=== PATIENT | female | born 1980 | race Caucasian/White ===

== ENCOUNTER → 2016-12-07 | Outpatient (CLI) | payer BC ==
[2016-12-07 08:27] LABS: CH 29.9; CHCM 34.8; HCT 39.1 % (34.0-46.0); HDW 2.59; HGB 13.6 gm/dL (11.4-16.0); MCHC 34.8 g/dL (31.0-37.0); MCV 86.3 fL (80.0-100.0); Mean Platelet Volume 6.7; RBC 4.53 m/uL (3.80-5.40); RDW 12.6 % (11.5-15.5); WBC 4.9 k/uL (3.8-10.6)
[2016-12-07 08:42] LABS: ALT 21 U/L (9-52); AST 21 U/L (14-36); Alkaline Phosphatase 63 U/L (38-126); Anion Gap 9 mmol/L; Blood Urea Nitrogen 16 mg/dL (7-17); Calcium 9.3 mg/dL (8.4-10.2); Carbon Dioxide 27 mmol/L (22-30); Chloride 105 mmol/L (98-107); Cholesterol 206 mg/dL (<200); Glucose 95 mg/dL (74-99); HDL Cholesterol 64 mg/dL (40-60); Non-African American GFR(MDRD) >60 (>60 ml/min/1.73 sqM); Potassium 4.4 mmol/L (3.5-5.1); Sodium 141 mmol/L (137-145); Total Bilirubin 0.9 mg/dL (0.2-1.3); Total Protein 7.1 g/dL (6.3-8.2); Triglycerides 65 mg/dL (<150)
== END | disposition home or self-care (01) ==
LOC: LABWHC1 07:58
PROVIDERS: ATTEND Family Medicine
DX: Z00.00 Encounter for general adult medical examination without abnormal findings (principal)
CPT/HCPCS: 36415; 80053; 80061; 85027

== ENCOUNTER → 2017-11-06 | Outpatient (CLI) | payer BC ==
--- NOTE | 2017-11-07 07:55 | USB ---
Reason for exam: clinical finding. History: Family history of breast cancer in 3 paternal aunts at age 40. Benign US breast aspiration single LT of the left breast, December 12, 2014. Benign US biopsy breast VAD LT of the left breast, December 12, 2014. Indicated problem(s): lump or thickening in the left breast. Physical Findings: Nurse Summary: left breast nodules 12 o'clock, 1 o'clock, 2 o'clock, all soft, movable 0.5 x 1cm tender (nurse ts). US Breast LT Left complete breast ultrasound includes all four quadrants, the retroareolar region and axilla. Finding demonstrates several cystic lesions measuring 0.7 x 0.5 x 0.3cm at 12 o'clock, 1.9 x 0.8 x 1.7cm at 1 o'clock-may be two adjacent cysts, short term follow up recommended, 0.7 x 0.5 x 0.7cm at 2 o'clock and 1.5 x 1.1 x 1.4cm at 2 o'clock. These results were verbally communicated with the patient and result sheet given to the patient on 11/06/17. ASSESSMENT: Probably benign, BI-RAD 3 RECOMMENDATION: Ultrasound of the left breast in 6 months. Manage patient on a clinical basis.
== END | disposition home or self-care (01) ==
LOC: RADUSWWP 15:39
PROVIDERS: ATTEND Obstetrics & Gynecology
DX: N64.4 Mastodynia (principal); N63.20 Unspecified lump in the left breast, unspecified quadrant

== ENCOUNTER → 2018-04-14 | Outpatient (CLI) | payer BC ==
--- NOTE | 2018-04-14 13:27 | ECHOF ---
Referral Reason:R53.83 Fatigue, Z82.49 Family MEASUREMENTS -------- HEIGHT: 165.1 cm WEIGHT: 58.1 kg BP: IVSd: 0.7 cm (0.6 - 1.1) LVIDd: 4.0 cm (3.9 - 5.3) LVPWd: 0.9 cm (0.6 - 1.1) IVSs: 1.0 cm LVIDs: 2.6 cm LVPWs: 1.1 cm RVIDd: 1.9 cm (< 3.3) LAESV Index (A-L): 27.98 ml/m Ao Diam: 2.9 cm (2.0 - 3.7) LA Diam: 1.1 cm (2.7 - 3.8) AV Cusp: 1.6 cm (1.5 - 2.6) MV E Abilio: 0.82 m/s MV DecT: 454 ms MV A Abilio: 0.98 m/s MV E/A Ratio: 0.84 RAP: 5.00 mmHg RVSP: 27.35 mmHg FINDINGS -------- Resting tachycardia (HR>100bpm). This was a technically good study. The left ventricular size is normal. Left ventricular wall thickness is normal. Overall left vent ricular systolic function is normal with, an EF between 55 - 60 %. The right ventricle is normal in size and function. Normal LA size by volume 22+/-6 ml/m2. The right atrium is normal in size. The aortic valve is trileaflet, and appears structurally normal. No aortic stenosis or regurgitation. The mitral valve is normal. There is trace mitral regurgitation. Trace tricuspid regurgitation present. Right ventricular systolic pressure is normal at < 35 mmHg. There is no evidence of pulmonary hypertension. Trace/mild (physiologic) pulmonic regurgitation. The aortic root size is normal. Normal inferior vena cava with normal inspiratory collapse consistent with estimated right atrial pre ssure of 5 mmHg. There is no pericardial effusion. CONCLUSIONS -------- 1. Resting tachycardia (HR>100bpm). 2. This was a technically good study. 3. The left ventricular size is normal. 4. Left ventricular wall thickness is normal. 5. Overall left ventricular systolic function is normal with, an EF between 55 - 60 %. 6. Normal LA size by volume 22+/-6 ml/m2. 7. The aortic valve is trileaflet, and appears structurally normal. No aortic stenosis or regurgitati on. 8. There is trace mitral regurgitation. 9. Trace tricuspid regurgitation present. 10. Right ventricular systolic pressure is normal at < 35 mmHg. 11. There is no evidence of pulmonary hypertension. 12. Trace/mild (physiologic) pulmonic regurgitation. 13. The aortic root size is normal. 14. There is no pericardial effusion. COMMERCIAL LINES ACCOUNT EXECUTIVE: Silverio Shah RDCS
--- NOTE | 2018-04-15 11:15 | P.STRESS ---
- Stress Test Note Stress Test Results/Findings: Exam Performed: stress test Exam Date: 04/14/18 Reason for Exam: FATIGUE Height: 5 ft 5 in Weight: 58.06 kg Protocol: MARGRET Stage: 4 Duration of Exercise: 9:30 Resting Heart Rate: 90 Resting Blood Pressure: 129/72 Maximum Achieved Heart Rate: 157 Maximum Achieved Blood Pressure: 164/76 85% PMHR: 155 100% PMHR: 182 METS: 11.1 Technologist Comment: Stress Test Results/Findings: Baseline heart rate 90 beats a minute, Baseline blood pressure 122/72 mmHg Baseline twelve-lead ECG shows normal sinus rhythm and on chronic intervals Patient exercised on a Margret protocol for 9 minutes 30 seconds achieving a peak heart of 157 beats a minute normal blood pressure response to exercise There is no ECG evidence for ischemia There were no arrhythmias noted Impression Good exercise capacity normal blood pressure response to exercise no ECG evidence for ischemia
== END ==
LOC: RADNMMAIN 08:33
PROVIDERS: ATTEND Family Medicine
DX: I37.1 Nonrheumatic pulmonary valve insufficiency (principal); Z82.49 Family history of ischemic heart disease and other diseases of the circulatory system
CPT/HCPCS: 93017; 93306

== ENCOUNTER 2018-10-04 16:09 | Observation (INO) | payer BC, OTHER ==
[2018-10-04] MEDS ORDERED: MORPHINE SULFATE 2 MG/ML SYRINGE IVP STA (16:34)
[2018-10-04] MEDS ORDERED: SODIUM CHLORIDE 0.9% 1,000 ML IV STA (16:34)
[2018-10-04] MEDS ORDERED: HEPARIN SODIUM,PORCINE 5,000 UNIT/ML 1 ML VIAL IV PRN (16:35)
[2018-10-04] MEDS ORDERED: HEPARIN SODIUM,PORCINE 10,000 UNIT/ML 1 ML VIAL IV ONE (16:35)
--- NOTE | 2018-10-04 16:40 | ED ---
General Adult HPI - General Chief complaint: Chest Pain Stated complaint: Chest Pain Time Seen by Provider: 10/04/18 16:24 Source: patient Mode of arrival: wheelchair Limitations: no limitations - History of Present Illness Initial comments: Dictation was produced using On[employer] dictation software. please excuse any grammatical, word or spelling errors. Chief Complaint: 38 year old female with past medical history of factor V deficiency, endometriosis and SVT presents with chief complaint of chest pain since yesterday. History of Present Illness: 38-year-old female with multiple comorbidities. She states that since yesterday she's been having right anterior chest pain with radiation to the back since yesterday. She denies also been complaining of some numbness to her left hand. Patient denies any weakness to that extremity. Patient states that her symptoms have been constant since yesterday. She states this pain is unlike anything she is admitted experienced before. Patient has multiple ablation procedures performed in the past. Patient has a history of factor V deficiency. Denies any history of blood clots. Denies any lower extremity symptoms. Patient denies any shortness of breath. Patient is on a beta chrystal for SVT control. Her silver holloware assembler is Dr. Nagy. Patient does complain of nausea however no vomiting. The ROS documented in this emergency department record has been reviewed and confirmed by me. Those systems with pertinent positive or negative responses have been documented in the HPI. All other systems are other negative and/or noncontributory. PHYSICAL EXAM: General Impression: Alert and oriented x3, acute distress, nauseated, in pain HEENT: Normocephalic atraumatic, extra-ocular movements intact, pupils equal and reactive to light bilaterally, mucous membranes moist. Cardiovascular: Heart regular rate and rhythm, S1&S2 audible, no murmurs, rubs or gallops Chest: Lungs clear to auscultation bilaterally, no rhonchi, no wheeze, no rales Abdomen: Bowel sounds present, abdomen soft, non-tender, non-distended, no organomegaly Musculoskeletal: Pulses present and equal in all extremities, no peripheral edema, no pulse deficit in the extremities no asymmetrical swelling of the lower extremities Motor: no focal deficits noted Neurological: CN II-XII grossly intact, no focal motor or sensory deficits noted Skin: Intact with no visualized rashes Psych: Normal affect and mood ED course: 38-year-old female presents with chief complaint of chest pain. Vital signs upon arrival shows heart rate of 129, worse vital signs within acceptable limits. EKG was performed showing coronary disease pattern. The patient be Q-wave in lead 3 this not seen on EKG performed in February 2014.Laboratory evaluation obtained. CBC, coag panel, metabolic panel, cardiac enzymes, lipase is negative. Stat portable chest x-ray shows no acute processes. Patient's symptoms are concerning for aortic dissection versus pulmonary embolus. CT angios unremarkable for any aortic abnormalities or PE. Patient given 2 mg of morphine and aspirin. She did report improvement of symp toms upon reevaluation. Patient however still does report some symptoms and still has sporadic sinus arrhythmias. Given patient's medical history and clinical presentation today we will plan to have patient admitted to observation with serial troponins and cardiology consultation. EKG interpretation: Ventricular rate orally, sinus tachycardia,. Interval 146, Q 72, QTC 410. No HI prolongation, no QTC prolongation, no ST or T-wave changes noted. - Related Data Home Medications Medication Instructions Recorded Confirmed Naltrexone HCl/Bupropion HCl 1 tab PO BID 10/04/18 10/04/18 [Contrave ER 8-90 mg Tablet] Allergies Allergy/AdvReac Type Severity Reaction Status Date / Time adhesive tape Allergy BLISTERS" Verified 10/04/18 17:24 codeine AdvReac Chest Pain Verified 10/04/18 17:24 hydromorphone HCl AdvReac Chest Pain Verified 10/04/18 17:24 [From Dilaudid] meperidine HCl [From Demerol] AdvReac Chest Pain Verified 10/04/18 17:24 nitroglycerin AdvReac Unknown Verified 10/04/18 17:24 [From Nitrostat] Review of Systems ROS Statement: Those systems with pertinent positive or pertinent negative responses have been documented in the HPI. ROS Other: All systems not noted in ROS Statement are negative. Past Medical History Past Medical History: Supraventricular Tachycardia (SVT) Additional Past Medical History / Comment(s): Factor V deficiency, endometriosis History of Any Multi-Drug Resistant Organisms: None Reported Past Surgical History: Cardiac Ablation, Cholecystectomy, Tubal Ligation Additional Past Surgical History / Comment(s): left ovary removed, SVT Past Anesthesia/Blood Transfusion Reactions: No Reported Reaction Past Psychological History: No Psychological Hx Reported Smoking Status: Never smoker Past Alcohol Use History: None Reported Past Drug Use History: None Reported - Past Family History Father Family Medical History: Coronary Artery Disease (CAD), Diabetes Mellitus Mother Family Medical History: Cancer, Deep Vein Thrombosis (DVT), Pulmonary Embolus General Exam Limitations: no limitations Course Vital Signs 10/04/18 10/04/18 10/04/18 16:14 16:30 17:56 Temperature 99.3 F Pulse Rate 129 H 99 Pulse Rate [ 115 H Branch Retail Executive ] Respiratory 20 20 Rate Blood Pressure 117/81 123/64 O2 Sat by Pulse 98 100 Oximetry Medical Decision Making - Lab Data Result diagrams: 10/04/18 16:45 10/04/18 16:45 Lab Results 10/04/18 10/04/18 10/04/18 Range/Units 16:45 16:45 16:45 WBC 9.0 (3.8-10.6) k/uL RBC 4.94 (3.80-5.40) m/uL Hgb 14.3 (11.4-16.0) gm/dL Hct 41.7 (34.0-46.0) % MCV 84.5 (80.0-100.0) fL MCH 29.0 (25.0-35.0) pg MCHC 34.3 (31.0-37.0) g/dL RDW 14.2 (11.5-15.5) % Plt Count 252 (150-450) k/uL Neutrophils % 89 % Lymphocytes % 6 % Monocytes % 2 % Eosinophils % 3 % Basophils % 0 % Neutrophils # 8.0 H (1.3-7.7) k/uL Lymphocytes # 0.5 L (1.0-4.8) k/uL Monocytes # 0.2 (0-1.0) k/uL Eosinophils # 0.2 (0-0.7) k/uL Basophils # 0.0 (0-0.2) k/uL PT 11.1 (9.0-12.0) sec INR 1.1 (<1.2) APTT 22.4 (22.0-30.0) sec Sodium 139 (137-145) mmol/L Potassium 3.9 (3.5-5.1) mmol/L Chloride 104 (98-107) mmol/L Carbon Dioxide 26 (22-30) mmol/L Anion Gap 9 mmol/L BUN 15 (7-17) mg/dL Creatinine 0.62 (0.52-1.04) mg/dL Est GFR (CKD-EPI)AfAm >90 (>60 ml/min/1.73 sqM) Est GFR (CKD-EPI)NonAf >90 (>60 ml/min/1.73 sqM) Glucose 105 H (74-99) mg/dL Calcium 9.3 (8.4-10.2) mg/dL Magnesium 1.8 (1.6-2.3) mg/dL Total Bilirubin 0.7 (0.2-1.3) mg/dL AST 22 (14-36) U/L ALT 22 (9-52) U/L Alkaline Phosphatase 66 (38-126) U/L Troponin I (0.000-0.034) ng/mL Total Protein 7.0 (6.3-8.2) g/dL Albumin 4.2 (3.5-5.0) g/dL Lipase 94 (23-300) U/L 10/04/18 Range/Units 16:45 WBC (3.8-10.6) k/uL RBC (3.80-5.40) m/uL Hgb (11.4-16.0) gm/dL Hct (34.0-46.0) % MCV (80.0-100.0) fL MCH (25.0-35.0) pg MCHC (31.0-37.0) g/dL RDW (11.5-15.5) % Plt Count (150-450) k/uL Neutrophils % % Lymphocytes % % Monocytes % % Eosinophils % % Basophils % % Neutrophils # (1.3-7.7) k/uL Lymphocytes # (1.0-4.8) k/uL Monocytes # (0-1.0) k/uL Eosinophils # (0-0.7) k/uL Basophils # (0-0.2) k/uL PT (9.0-12.0) sec INR (<1.2) APTT (22.0-30.0) sec Sodium (137-145) mmol/L Potassium (3.5-5.1) mmol/L Chloride (98-107) mmol/L Carbon Dioxide (22-30) mmol/L Anion Gap mmol/L BUN (7-17) mg/dL Creatinine (0.52-1.04) mg/dL Est GFR (CKD-EPI)AfAm (>60 ml/min/1.73 sqM) Est GFR (CKD-EPI)NonAf (>60 ml/min/1.73 sqM) Glucose (74-99) mg/dL Calcium (8.4-10.2) mg/dL Magnesium (1.6-2.3) mg/dL Total Bilirubin (0.2-1.3) mg/dL AST (14-36) U/L ALT (9-52) U/L Alkaline Phosphatase (38-126) U/L Troponin I <0.012 (0.000-0.034) ng/mL Total Protein (6.3-8.2) g/dL Albumin (3.5-5.0) g/dL Lipase (23-300) U/L Disposition Clinical Impression: Chest pain Disposition: ADMITTED IP TO THIS [facility] Condition: Fair Referrals: Domenico Rogers DO [Primary Care Provider] - 1-2 days Decision Time: 19:30
[2018-10-04] MEDS ORDERED: HEPARIN SOD,PORK IN 0.45% NACL 25,000 UNIT in 0.45% NACL 1 250ML.BAG IV SCH (16:45)
[2018-10-04 17:04] LABS: Basophils % (A) 0 %; Eosinophils # (A) 0.2 k/uL (0-0.7); Eosinophils % (A) 3 %; HCT 41.7 % (34.0-46.0); HGB 14.3 gm/dL (11.4-16.0); Lymphocytes # (A) 0.5 k/uL (1.0-4.8); Lymphocytes % (A) 6 %; MCHC 34.3 g/dL (31.0-37.0); MCV 84.5 fL (80.0-100.0); Mean Platelet Volume 7.7; Monocytes # (A) 0.2 k/uL (0-1.0); Monocytes % (A) 2 %; Neutrophils % (A) 89 %; Platelet Count 252 k/uL (150-450); RBC 4.94 m/uL (3.80-5.40); RDW 14.2 % (11.5-15.5)
[2018-10-04 17:14] LABS: ALT 22 U/L (9-52); AST 22 U/L (14-36); Albumin 4.2 g/dL (3.5-5.0); Alkaline Phosphatase 66 U/L (38-126); Anion Gap 9 mmol/L; Blood Urea Nitrogen 15 mg/dL (7-17); Calcium 9.3 mg/dL (8.4-10.2); Carbon Dioxide 26 mmol/L (22-30); Chloride 104 mmol/L (98-107); Glucose 105 mg/dL (74-99); Lipase 94 U/L (23-300); Magnesium 1.8 mg/dL (1.6-2.3); Potassium 3.9 mmol/L (3.5-5.1); Sodium 139 mmol/L (137-145); Total Bilirubin 0.7 mg/dL (0.2-1.3)
[2018-10-04 17:21] LABS: INR 1.1 (<1.2); Partial Thromboplastin Time 22.4 sec (22.0-30.0); Prothrombin Time 11.1 sec (9.0-12.0)
--- NOTE | 2018-10-04 17:27 | XR ---
EXAMINATION TYPE: XR chest 1V portable DATE OF EXAM: 10/04/2018 COMPARISON: Prior chest x-ray 03/17/2014 HISTORY: Chest pain TECHNIQUE: Single frontal view of the chest is obtained. FINDINGS: There are overlying cardiac leads. There is no focal air space opacity, pleural effusion, o r pneumothorax seen. The cardiac silhouette size is within normal limits. The osseous structures a re intact. IMPRESSION: No acute process.
--- NOTE | 2018-10-04 18:00 | CT ---
EXAMINATION TYPE: CT angio chest DATE OF EXAM: 10/04/2018 COMPARISON: CT chest 09/14/2015 HISTORY: SOB, pain in back CT DLP: 197.8 mGycm Automated exposure control for dose reduction was used. CONTRAST: CTA scan of the thorax is performed with IV Contrast, patient injected with 100 mL of Isovue 300, pul monary embolism protocol. MIP images are created and reviewed. 3D reconstructed images are created on an independent workstation and reviewed. FINDINGS: LUNGS: The lungs are grossly clear, there is no concerning parenchymal mass or nodule identified. T here is no pleural effusion or pneumothorax seen. The tracheobronchial tree is patent. AORTA: No additional significant abnormality is seen. MEDIASTINUM: There is satisfactory enhancement of the pulmonary artery and its branches, there is no CT evidence for pulmonary embolism. There are no greater than 1 cm hilar or mediastinal lymph nodes. No pericardial effusion is seen. OTHER: Patient is post cholecystectomy. IMPRESSION: NO EVIDENT PULMONARY EMBOLISM.
[2018-10-04] MEDS ORDERED: ASPIRIN 81 MG PO STA (19:26)
[2018-10-04 20:01] VITALS: RESP 16
[2018-10-04 20:40] LABS: Appearance,Urine Clear (Clear); Bilirubin,Urine Negative (Negative); Blood,Urine Moderate (Negative); Color,Urine Yellow; Glucose,Urine (UA) Negative (Negative); Ketones,Urine Negative (Negative); Leukocyte Esterase,Urine Negative (Negative); Mucus,Urine Rare /hpf; Nitrite,Urine Negative (Negative); Protein,Urine Trace (Negative); RBC,Urine 15 /hpf (0-5); Squamous Epithelial Cell,Urine <1 /hpf (0-4); Urobilinogen,Urine <2.0 mg/dL (<2.0)
[2018-10-04 20:45] LABS: Specific Gravity,Urine >1.050 (1.001-1.035)
[2018-10-04] MEDS: MORPHINE SULFATE 2 MG/ML SYRINGE IVP PRN (20:56)
[2018-10-05] MEDS: MORPHINE SULFATE 2 MG/ML SYRINGE IVP PRN ×2 (00:45→05:07)
[2018-10-05 01:08] LABS: Cholesterol 167 mg/dL (<200); HDL Cholesterol 63 mg/dL (40-60); LDL Cholesterol,Calculated 85 mg/dL (0-99); Triglycerides 94 mg/dL (<150)
--- NOTE | 2018-10-05 07:18 | P.CRDCN ---
History of Present Illness Consult date: 10/05/18 Chief complaint: Chest pain History of present illness: This is a pleasant 38-year-old female patient with a past medical history significant for SVT presented to the hospital complaining of chest discomfort. She was in her usual state of health where she was at home watching TV when she started experiencing discomfort in the mid of the chest, as a pressure on the chest, with some radiation to the back, without any associated symptoms of sh ortness of breath, sweating, nausea or vomiting, or syncope. The chest discomfort lasted about 15-20 minutes and because of that she decided to come to the emergency room. The EKG showed sinus tachycardia. The cardiac enzymes were checked and came in to be unremarkable. Computed tomography scan of the chest was performed and showed no evidence of PE. The patient was here in March 2018 with a chest discomfort and at that point she underwent a stress test came in to be unremarkable and echocardiogram showed normal LV function. She is quite concerned about her symptoms. Past Medical History Past Medical History: Supraventricular Tachycardia (SVT) Additional Past Medical History / Comment(s): Factor V deficiency, endometriosis History of Any Multi-Drug Resistant Organisms: None Reported Past Surgical History: Cardiac Ablation, Cholecystectomy, Tubal Ligation Additional Past Surgical History / Comment(s): left ovary removed, SVT Past Anesthesia/Blood Transfusion Reactions: No Reported Reaction Smoking Status: Never smoker - Past Family History Father Family Medical History: Coronary Artery Disease (CAD), Diabetes Mellitus Mother Family Medical History: Cancer, Deep Vein Thrombosis (DVT), Pulmonary Embolus Medications and Allergies Home Medications Medication Instructions Recorded Confirmed Type Naltrexone HCl/Bupropion HCl 1 tab PO BID 10/04/18 10/04/18 History [Contrave ER 8-90 mg Tablet] Allergies Allergy/AdvReac Type Severity Reaction Status Date / Time adhesive tape Allergy BLISTERS" Verified 10/04/18 20:42 codeine AdvReac Chest Pain Verified 10/04/18 20:42 hydromorphone HCl AdvReac Chest Pain Verified 10/04/18 20:42 [From Dilaudid] meperidine HCl [From Demerol] AdvReac Chest Pain Verified 10/04/18 20:42 nitroglycerin AdvReac Unknown Verified 10/04/18 20:42 [From Nitrostat] Physical Exam Vitals: Vital Signs Temp Pulse Pulse Resp BP BP Pulse Ox 10/05/18 03:52 98.9 F 76 16 93/57 99 10/05/18 01:57 16 10/05/18 00:00 98.3 F 79 16 103/63 99 10/04/18 20:42 98.8 F 80 16 94/55 99 10/04/18 20:01 97.8 F 91 16 106/77 98 10/04/18 20:00 16 10/04/18 19:40 96 18 100/51 100 10/04/18 17:56 99 20 123/64 100 10/04/18 16:30 115 H 10/04/18 16:14 99.3 F 129 H 20 117/81 98 Intake and Output 10/04/18 10/05/18 10/05/18 22:59 06:59 14:59 Other: # Voids 1 1 Weight 58.967 kg - Constitutional General appearance: no acute distress - Respiratory Respiratory: bilateral: CTA - Cardiovascular Rhythm: regular Heart sounds: normal: S1, S2 Results 10/04/18 16:45 10/04/18 16:45 Cardiac Enzymes 10/04/18 10/04/18 10/04/18 Range/Units 16:45 16:45 22:39 AST 22 (14-36) U/L Troponin I <0.012 <0.012 (0.000-0.034) ng/mL 10/05/18 Range/Units 04:10 AST (14-36) U/L Troponin I <0.012 (0.000-0.034) ng/mL Coagulation 10/04/18 Range/Units 16:45 PT 11.1 (9.0-12.0) sec APTT 22.4 (22.0-30.0) sec Lipids 10/04/18 Range/Units 16:45 Triglycerides 94 (<150) mg/dL Cholesterol 167 (<200) mg/dL HDL Cholesterol 63 H (40-60) mg/dL CBC 10/04/18 Range/Units 16:45 WBC 9.0 (3.8-10.6) k/uL RBC 4.94 (3.80-5.40) m/uL Hgb 14.3 (11.4-16.0) gm/dL Hct 41.7 (34.0-46.0) % Plt Count 252 (150-450) k/uL Comprehensive Metabolic Panel 10/04/18 Range/Units 16:45 Sodium 139 (137-145) mmol/L Potassium 3.9 (3.5-5.1) mmol/L Chloride 104 (98-107) mmol/L Carbon Dioxide 26 (22-30) mmol/L BUN 15 (7-17) mg/dL Creatinine 0.62 (0.52-1.04) mg/dL Glucose 105 H (74-99) mg/dL Calcium 9.3 (8.4-10.2) mg/dL AST 22 (14-36) U/L ALT 22 (9-52) U/L Alkaline Phosphatase 66 (38-126) U/L Total Protein 7.0 (6.3-8.2) g/dL Albumin 4.2 (3.5-5.0) g/dL Current Medications Generic Name Dose Route Start Last Admin Trade Name Freq PRN Reason Stop Dose Admin Acetaminophen 650 mg 10/05/18 00:15 Tylenol Tab PO Q4HR PRN Fever and/ or Pain Aspirin 325 mg 10/05/18 09:00 Aspirin PO DAILY HENRIQUE Morphine Sulfate 2 mg 10/04/18 19:30 10/05/18 05:07 Morphine Sulfate (Inj) IVP 2 mg Q4HR PRN Administration Pain Intake and Output 10/04/18 10/05/18 10/05/18 22:59 06:59 14:59 Other: # Voids 1 1 Weight 58.967 kg 10/04/18 16:45 10/04/18 16:45 Assessment and Plan Assessment: Assessment #1 atypical chest discomfort #2 history of SVT and status post ablation Plan #1 the patient was ruled out for acute coronary event #2 we will obtain a stress test and echocardiogram #3 follow-up with the patient. Thank you for allowing us participate in her care
[2018-10-05] MEDS: ACETAMINOPHEN TAB 325 MG TAB PO PRN ×2 (07:26→11:41)
[2018-10-05] MEDS ORDERED: ASPIRIN 325 MG TAB PO SCH (09:00)
--- NOTE | 2018-10-05 11:57 | ECHOF ---
Referral Reason: MEASUREMENTS -------- HEIGHT: 165.1 cm WEIGHT: 59.0 kg BP: 105/64 IVSd: 0.9 cm (0.6 - 1.1) LVIDd: 3.0 cm (3.9 - 5.3) LVPWd: 1.0 cm (0.6 - 1.1) IVSs: 1.2 cm LVIDs: 1.9 cm LVPWs: 1.5 cm LAESV Index (A-L): 19.99 ml/m Ao Diam: 2.7 cm (2.0 - 3.7) AV Cusp: 1.7 cm (1.5 - 2.6) LA Diam: 2.2 cm (2.7 - 3.8) MV EXCURSION: 18.330 mm (> 18.000) MV EF SLOPE: 137 mm/s (70 - 150) EPSS: 0.4 cm MV E Abilio: 0.87 m/s MV DecT: 278 ms MV A Abilio: 0.53 m/s MV E/A Ratio: 1.63 RAP: 5.00 mmHg RVSP: 15.95 mmHg FINDINGS -------- Sinus rhythm. This was a technically good study. The left ventricular size is normal. Left ventricular wall thickness is normal. Overall left vent ricular systolic function is normal with, an EF between 55 - 60 %. The right ventricle is normal in size. Normal LA size by volume 22+/-6 ml/m2. The right atrial size is normal. The aortic valve is trileaflet and appears structurally normal. The mitral valve leaflets are mildly thickened. Mild mitral regurgitation is present. Mild tricuspid regurgitation present. The right ventricular systolic pressure, as measured by Doppl er, is 15.95mmHg. There is no pulmonic regurgitation present. The aortic root size is normal. Normal inferior vena cava with normal inspiratory collapse consistent with estimated right atrial pre ssure of 5 mmHg. There is no pericardial effusion. CONCLUSIONS -------- 1. Sinus rhythm. 2. This was a technically good study. 3. The left ventricular size is normal. 4. Left ventricular wall thickness is normal. 5. Overall left ventricular systolic function is normal with, an EF between 55 - 60 %. 6. The right ventricle is normal in size. 7. Normal LA size by volume 22+/-6 ml/m2. 8. The right atrial size is normal. 9. The aortic valve is trileaflet and appears structurally normal. 10. The mitral valve leaflets are mildly thickened. 11. Mild mitral regurgitation is present. 12. Mild tricuspid regurgitation present. 13. The right ventricular systolic pressure, as measured by Doppler, is 15.95mmHg. 14. There is no pulmonic regurgitation present. 15. The aortic root size is normal. 16. Normal inferior vena cava with normal inspiratory collapse consistent with estimated right atrial pressure of 5 mmHg. 17. There is no pericardial effusion. [employer] B[employer] ASSEMBLER: Cheri Chaudhry RDCS
[2018-10-05 12:29] VITALS: BP 100/63; PULSE 81; TEMP 98.6
--- NOTE | 2018-10-05 13:44 | P.HPIM ---
History of Present Illness H&P Date: 10/05/18 Chief Complaint: Chest pain This is a 38-year-old female patient of Dr. Rogers with past history of factor V deficiency, endometriosis, SVT status post 3 cardiac ablations. Patient last seen Dr. Booker in couple years ago.. Patient had onset of discomfort in her right rib area while watching TV along with radiation to the back. Patient states it lasted all night and she did have some vomiting. Eventually the pain went to her lower back and she had a hard time breathing. She has had history Patient came into [facility] emergency center for evaluation her initial heart rate was 129. All lab work was essentially normal. Chest x-ray showed no acute process. CT and she'll was unremarkable for aortic abnormalities or PE. Patient was given morphine and aspirin and placed on the observation unit. She has been seen in consultation by Dr. Manning. EKG was a sinus tachycardia. She had a previous stress test done in March 2018 that was unremarkable and EKG showed normal LV function. Cardiology has ordered a stress test and echocardiogram. Acute coronary syndrome has been ruled out stress echo has been completed and is normal and patient will be discharged home today in stable condition. No change in home medications. Discharge Medication List Naltrexone HCl/Bupropion HCl [Contrave ER 8-90 mg Tablet] 1 tab PO BID 10/04/18 [History] Review of Systems All systems: negative Constitutional: Denies chills, Denies fatigue, Denies fever, Denies lethargy, Denies malaise, Denies night sweats, Denies poor appetite, Denies sweats, Denies weakness, Denies weight loss Eyes: denies blurred vision, denies pain Ears, nose, mouth and throat: Denies dental pain, Denies headache, Denies mouth pain, Denies nasal congestion, Denies nasal discharge, Denies sore throat, Denies vertigo Cardiovascular: Reports chest pain, Denies decreased exercise tolerance, Denies dyspnea on exertion, Denies edema, Denies leg edema, Denies lightheadedness, Denies orthopnea, Denies shortness of breath, Denies syncope Respiratory: Denies cough Gastrointestinal: Denies abdominal pain, Denies diarrhea, Denies loss of appetite, Denies nausea, Denies vomiting Genitourinary: Denies dysuria, Denies hematuria, Denies urge incontinence, Denies urgency, Denies urinary frequency Musculoskeletal: Denies frequent falls, Denies gait dysfunction, Denies myalgias Integumentary: Denies pruritus, Denies rash, Denies wounds Neurological: Denies aphasia, Denies change in mentation, Denies confusion, Denies numbness, Denies seizures, Denies weakness Psychiatric: Denies anxiety, Denies depression Endocrine: Denies fatigue, Denies weight change Past Medical History Past Medical History: Supraventricular Tachycardia (SVT) Additional Past Medical History / Comment(s): Homozygous Factor V deficiency, endometriosis History of Any Multi-Drug Resistant Organisms: None Reported Past Surgical History: Cardiac Ablation, Cholecystectomy, Tubal Ligation Additional Past Surgical History / Comment(s): left ovary removed, cardiac ablation 3, right breast biopsy/benign Past Anesthesia/Blood Transfusion Reactions: No Reported Reaction Smoking Status: Never smoker Additional Past Alcohol Use History / Comment(s): Patient is a lifelong nonsmoker, no illicit drug use, no alcohol use. - Past Family History Father Family Medical History: Coronary Artery Disease (CAD), Diabetes Mellitus, Myocardial Infarction ([place]) Mother Family Medical History: Cancer, Deep Vein Thrombosis (DVT), Myocardial Inf arction ([place]), Pulmonary Embolus Brother(s) Additional Family Medical History / Comment(s): Patient has one brother with history of DVT. He has factor V positive. Sister(s) Additional Family Medical History / Comment(s): Patient has 1 sister with no major medical problems. Patient has 3 daughters and to have one gene positive for factor V and 1 daughter has 2 genes. Medications and Allergies Home Medications Medication Instructions Recorded Confirmed Type Naltrexone HCl/Bupropion HCl 1 tab PO BID 10/04/18 10/04/18 History [Contrave ER 8-90 mg Tablet] Allergies Allergy/AdvReac Type Severity Reaction Status Date / Time adhesive tape Allergy BLISTERS" Verified 10/04/18 20:42 codeine AdvReac Chest Pain Verified 10/04/18 20:42 hydromorphone HCl AdvReac Chest Pain Verified 10/04/18 20:42 [From Dilaudid] meperidine HCl [From Demerol] AdvReac Chest Pain Verified 10/04/18 20:42 nitroglycerin AdvReac Unknown Verified 10/04/18 20:42 [From Nitrostat] Physical Exam Vitals: Vital Signs Temp Pulse Pulse Pulse Resp BP BP 10/05/18 07:20 98.2 F 78 16 105/64 10/05/18 03:52 98.9 F 76 16 93/57 10/05/18 01:57 16 10/05/18 00:00 98.3 F 79 16 103/63 10/04/18 20:42 98.8 F 80 16 94/55 10/04/18 20:01 97.8 F 91 16 106/77 10/04/18 20:00 16 10/04/18 19:40 96 18 100/51 10/04/18 17:56 99 20 123/64 10/04/18 16:30 115 H 10/04/18 16:14 99.3 F 129 H 20 117/81 Pulse Ox 10/05/18 07:20 97 10/05/18 03:52 99 10/05/18 01:57 10/05/18 00:00 99 10/04/18 20:42 99 10/04/18 20:01 98 10/04/18 20:00 10/04/18 19:40 100 10/04/18 17:56 100 10/04/18 16:30 10/04/18 16:14 98 Intake and Output 10/04/18 10/05/18 10/05/18 22:59 06:59 14:59 Other: Voiding Method Toilet # Voids 1 1 Weight 58.967 kg Gen: This is a 38-year-old female. She is resting in bed appears to be comfortable and in no acute distress. HEENT: Head is atraumatic, normocephalic. Pupils equal, round. Sclerae is anicteric. NECK: Supple. No JVD. No lymphadenopathy. No thyromegaly. LUNGS: Clear to auscultation. No wheezes or rhonchi. No intercostal retractions. HEART: Regular rate and rhythm. No murmur. ABDOMEN: Soft. Bowel sounds are present. No masses. No tenderness. EXTREMITIES: No pedal edema. No calf tenderness. NEUROLOGICAL: Patient is awake, alert and oriented x3. Cranial nerves 2 through 12 are grossly intact. Results CBC & Chem 7: 10/04/18 16:45 10/04/18 16:45 Labs: Abnormal Lab Results - Last 24 Hours (Table) 10/04/18 10/04/18 10/04/18 Range/Units 16:45 16:45 16:45 Neutrophils # 8.0 H (1.3-7.7) k/uL Lymphocytes # 0.5 L (1.0-4.8) k/uL Glucose 105 H (74-99) mg/dL HDL Cholesterol 63 H (40-60) mg/dL Ur Specific [place] (1.001-1.035) Urine Protein (Negative) Urine Blood (Negative) Urine RBC (0-5) /hpf Urine Mucus (None) /hpf 10/04/18 Range/Units 20:16 Neutrophils # (1.3-7.7) k/uL Lymphocytes # (1.0-4.8) k/uL Glucose (74-99) mg/dL HDL Cholesterol (40-60) mg/dL Ur Specific [place] >1.050 H (1.001-1.035) Urine Protein Trace H (Negative) Urine Blood Moderate H (Negative) Urine RBC 15 H (0-5) /hpf Urine Mucus Rare H (None) /hpf Assessment and Plan Plan: 1. Chest pain, acute cardiac syndrome ruled out. Stress test negative. Outpatient follow-up with her primary care and if further chest pain patient may benefit from from outpatient EGD.. 2. SVT, stable, status post 3 ablations. 3. Factor V deficiency, stable. 4. Endometriosis. Patient placed on the observation unit Discharge plan: home Impression and plan of care have been directed as dictated by the signing physician. Arcelia Milton nurse practitioner acting as scribe for signing physician.
--- NOTE | 2018-10-05 13:58 | ECHOS ---
STRESS ECHOCARDIOGRAM INDICATIONS: Chest pain. MEDICATIONS: Contrave ER BASELINE HEART RATE: 87 BASELINE BLOOD PRESSURE: 99/48 MAXIMUM HEART RATE: 149 MAXIMUM BLOOD PRESSURE: 151/55 85% MPHR: 154 100% MPHR: 181 METS: 12.1 MAXIMUM STAGE REACHED: 4 TOTAL EXERCISE TIME: 12:00 CLINICAL INFORMATION: STRESS DATA: Pretesting physical examination showed a heart rate of 87, pressure is 99/48 mmHg. Baseline EKG showed sinus mechanism. The patient was exercised on the treadmill according to Dion protocol for a total of 12 minutes and achieved 12.1 METS. Max heart rate was 149, which is about 83% of maximum predicted heart rate. Maximum blood pressure was 151/55 mmHg. Clinically, the patient did not have any symptoms of chest pain or discomfort and the EKG did not show any significant ST or T-wave abnormalities concerning for ischemia. On echocardiogram images from parasternal long axis view, parasternal short axis view, apical 4 chamber and apical 2 chamber view were obtained as the baseline images, at the peak of the heart rate as well as on recovery and the echocardiogram images showed good augmentation in the left ventricular systolic function without any evidence of wall motion abnormalities concerning for ischemia. CONCLUSION: 1. Good exercise tolerance. 2. Normal EKG in response to exercise. 3. Normal echocardiogram in response to exercise. 4. Essentially normal stress test. MMODL / IJN: [id number] /
== END 2018-10-05 14:22 | disposition home or self-care (01) ==
LOC: EC 16:09 → 1SOBS 19:28
PROVIDERS: ADMIT Family Medicine; ATTEND Family Medicine
DX: R07.89 Other chest pain (principal); N80.9 Endometriosis, unspecified; D68.2 Hereditary deficiency of other clotting factors; I47.1 Supraventricular tachycardia; R11.2 Nausea with vomiting, unspecified; R06.00 Dyspnea, unspecified; M54.5 Low back pain; Z79.899 Other long term (current) drug therapy; Z88.5 Allergy status to narcotic agent; Z88.8 Allergy status to other drugs, medicaments and biological substances; Z91.048 Other nonmedicinal substance allergy status; Z90.49 Acquired absence of other specified parts of digestive tract; Z83.3 Family history of diabetes mellitus; Z82.49 Family history of ischemic heart disease and other diseases of the circulatory system; Z80.9 Family history of malignant neoplasm, unspecified; Z83.2 Family history of diseases of the blood and blood-forming organs and certain disorders involving the immune mechanism; Z83.6 Family history of other diseases of the respiratory system
CPT/HCPCS: 96361 ×3; 96376 ×2; 96374; 99285; 36415; 93005; 93306; 93351; 80061; 80053; 83690; 83735; 84484 ×2; 85025; 85610; 85730; 81001; 71045; 71275; G0378 ×2; J2270 ×2; Q9967

== ENCOUNTER → 2019-02-11 | Outpatient (CLI) | payer OTHER ==
--- NOTE | 2019-02-11 13:17 | US ---
EXAMINATION TYPE: US abdomen complete DATE OF EXAM: 02/11/2019 COMPARISON: CT 2014 & US 2010 CLINICAL HISTORY: R10.9 Abdominal pain. Right flank pain, bloating, history of cholecystectomy EXAM MEASUREMENTS: Liver Length: 13.7 cm Gallbladder Wall: surgically absent CBD: 0.3 cm Spleen: 10.2 cm Right Kidney: 9.3 x 5.4 x 4.5 cm Left Kidney: 9.6 x 5.0 x 5.2 cm Pancreas: visualized portions wnl, limited by overlying midline bowel gas Liver: wnl Gallbladder: surgically absent Evidence for sonographic Ferris's sign: yes CBD: visualized portions wnl, limited by overlying bowel gas Spleen: visualized portions wnl, limited by overlying bowel gas Right Kidney: wnl Left Kidney: wnl Upper IVC: wnl Abd Aorta: visualized portions wnl, limited by overlying midline bowel gas The liver is homogenous. The intrahepatic portion of the IVC and proximal abdominal aorta are within normal limits. Gallbladder surgically absent. Common bile duct is unremarkable. The visualized por tions of the pancreas are homogenous. The spleen is unremarkable. Kidneys are symmetric and free of hydronephrosis. No renal lesions are seen. IMPRESSION: 1. No hydronephrosis or nephrolithiasis of the right kidney in this patient with right flank pain. 2. Exam is slightly limited by overlying bowel gas with partial obscuration of the pancreas, common b ile duct, spleen, and aorta.
== END | disposition home or self-care (01) ==
LOC: RADUSWWP 12:04
PROVIDERS: ATTEND Family Medicine
DX: R10.9 Unspecified abdominal pain (principal)
CPT/HCPCS: 76700

== ENCOUNTER → 2019-03-25 | Outpatient (CLI) | payer OTHER ==
--- NOTE | 2019-03-26 08:26 | US ---
EXAMINATION TYPE: US pelvis complete transvag DATE OF EXAM: 03/25/2019 COMPARISON: US CLINICAL HISTORY: R10.2 Pelvic Pain. Right sided pelvic pain for years. Left ovary surgically absent since 2001. Tubal ligation. . TECHNIQUE: Transvaginal (TV) and Transabdominal (TA) . Transabdominal sonographic images of the pel vis were acquired. Transvaginal sonographic images were medically necessary to better assess the fol lowing anatomy: Right ovary Date of LMP: Unknown EXAM MEASUREMENTS: Uterus: 9.7 x 8.9 x 6.8 cm Endometrial Stripe: 1.04 cm Right Ovary: 4.4 x 2.7 x 2.7 cm Left Ovary: surgically absent 1. Uterus: Anteverted Multiple hypoechoic areas seen in the uterus. Largest (labelled #3) measures : 5.3 x 4.8 x 4.1 cm. Best seen transabdominally. Limited due to shadowing transvaginally. Anechoic area seen in cervix can be compatible with a nabothian cyst. Right ovary vs hypoechoic area in uterus labelled #2 transabdominally. 2. Endometrium: measures 1.04 cm. 3. Right Ovary: follicles seen. Measures upper limits of normal vs slightly enlarged. 4. Left Ovary: surgically absent Spectral, color and waveform doppler imaging shows good arterial and venous flow within the right o vary; there is no evidence for ovarian torsion of the right ovary. Left ovary removed. 5. Bilateral Adnexa: appear wnl 6. Posterior cul-de-sac: Minimal complex fluid seen IMPRESSION: 1. Multiple uterine fibroids.
== END | disposition home or self-care (01) ==
LOC: RADUSWWP 15:25
PROVIDERS: ATTEND Obstetrics & Gynecology
DX: D25.9 Leiomyoma of uterus, unspecified (principal)
CPT/HCPCS: 76830; 76856

== ENCOUNTER → 2019-05-20 | Outpatient (CLI) | payer OTHER ==
--- NOTE | 2019-05-20 13:30 | MM ---
Reason for exam: clinical finding. Last mammogram was performed 4 years and 5 months ago. History: Patient has history of other cancer at age 21. Family history of breast cancer in 3 paternal aunts at age 40. Benign US breast aspiration single LT of the left breast, December 12, 2014. Benign US biopsy breast VAD LT of the left breast, December 12, 2014. Physical Findings: Nurse Summary: 1cm nodule in the right breast at 10 o'clock and a 2cm nodule in the left breast at 2-3 o'clock (nurse mj). MG 3D Diag Mammo W/Cad REBECA Bilateral CC, MLO, and XCCL view(s) were taken. Prior study comparison: December 12, 2014, left breast MG diagnostic mammo LT wo CAD. The breast tissue is heterogeneously dense. This may lower the sensitivity of mammography. Previous ultrasound biopsy in the left breast. Bilateral masses noted. These results were verbally communicated with the patient and result sheet given to the patient on 05/20/19. ASSESSMENT: Incomplete: need additional imaging evaluation, BI-RAD 0 RECOMMENDATION: Ultrasound of both breasts. Manage patient on a clinical basis.
--- NOTE | 2019-05-20 13:36 | USB ---
Reason for exam: additional evaluation requested from abnormal screening. History: Patient has history of other cancer at age 21. Family history of breast cancer in 3 paternal aunts at age 40. Benign US breast aspiration single LT of the left breast, December 12, 2014. Benign US biopsy breast VAD LT of the left breast, December 12, 2014. US Breast BILAT Left complete breast ultrasound includes all four quadrants, the retroareolar region and axilla. Finding demonstrates a 0.7 x 0.5 x 0.5cm oval, cystic complex lesion at 3 o'clock, a 0.6 x 0.9 x 0.5cm oval, mixed, cluster lesion at 11 o'clock and a 0.6 x 0.5 x 0.3cm oval, cluster, complex, cystic lesion at 11 o'clock. Right complete breast ultrasound includes all four quadrants, the retroareolar region and axilla. Finding demonstrates a 0.4 x 0.6 x 0.2cm oval, irregular, complex, cystic lesion at 6 o'clock, a 0.4 x 0.4 x 0.4cm oval, cystic lesion at 8 o'clock, a 0.4 x 0.4 x 0.3cm oval, cystic, complex lesion at 9 o'clock, multicysts, a 0.8 x 0.7 x 0.3cm oval, complex, cystic lesion at 10 o'clock BB, a 1.4 x 0.9 x 0.6cm oval axilla node and a 2.2 x 2.1 x 1.9cm oval, cluster, cystic lesion at 3 o'clock BB. These results were verbally communicated with the patient and result sheet given to the patient on 05/20/19. ASSESSMENT: Probably benign, BI-RAD 3 RECOMMENDATION: Follow-up diagnostic mammogram and ultrasound of both breasts in 6 months.
== END | disposition home or self-care (01) ==
LOC: RADMAMWWP 09:13
PROVIDERS: ATTEND Obstetrics & Gynecology
DX: N60.01 Solitary cyst of right breast (principal); N60.02 Solitary cyst of left breast; R92.8 Other abnormal and inconclusive findings on diagnostic imaging of breast
CPT/HCPCS: 77066; 76641; G0279; 77062

== ENCOUNTER → 2019-08-10 | Outpatient (CLI) | payer OTHER ==
[2019-08-10 14:33] LABS: African American GFR (CKD) >90 (>60 ml/min/1.73 sqM); Anion Gap 8 mmol/L; Blood Urea Nitrogen 17 mg/dL (7-17); Calcium 9.2 mg/dL (8.4-10.2); Carbon Dioxide 27 mmol/L (22-30); Chloride 102 mmol/L (98-107); Glucose 79 mg/dL (74-99); Non-African American GFR(CKD) >90 (>60 ml/min/1.73 sqM); Potassium 4.1 mmol/L (3.5-5.1); Sodium 137 mmol/L (137-145)
[2019-08-10 14:50] LABS: Basophils % (A) 1 %; Eosinophils # (A) 0.2 k/uL (0-0.7); Eosinophils % (A) 3 %; HCT 38.4 % (34.0-46.0); HGB 12.9 gm/dL (11.4-16.0); Lymphocytes # (A) 1.8 k/uL (1.0-4.8); Lymphocytes % (A) 29 %; MCH 29.4 pg (25.0-35.0); MCHC 33.5 g/dL (31.0-37.0); MCV 87.6 fL (80.0-100.0); Mean Platelet Volume 8.6; Monocytes # (A) 0.2 k/uL (0-1.0); Monocytes % (A) 3 %; Neutrophils # (A) 3.8 k/uL (1.3-7.7); Neutrophils % (A) 63 %; Platelet Count 264 k/uL (150-450); RBC 4.39 m/uL (3.80-5.40); RDW 12.5 % (11.5-15.5)
== END | disposition home or self-care (01) ==
LOC: LABPAT 13:19
PROVIDERS: ATTEND Obstetrics & Gynecology
DX: Z01.812 Encounter for preprocedural laboratory examination (principal)
CPT/HCPCS: 36415; 80048; 85025

== ENCOUNTER → 2019-08-13 | Outpatient (CLI) | payer OTHER ==
--- NOTE | 2019-08-13 11:25 | USB ---
Reason for exam: follow-up at short interval from prior study. History: Patient has history of other cancer at age 21. Family history of breast cancer in 3 paternal aunts at age 40. Benign US breast aspiration single LT of the left breast, December 12, 2014. Benign US biopsy breast VAD LT of the left breast, December 12, 2014. Physical Findings: Nurse Summary: several palpables (nurse kp). US Breast BILAT Right complete breast ultrasound includes all four quadrants, the retroareolar region and axilla. Finding demonstrates a 7 x 3 x 8mm oval, cystic lesion at 10 o'clock and a 6mm oval lymph node at the axilla tail. Left complete breast ultrasound includes all four quadrants, the retroareolar region and axilla. Finding demonstrates a 20 x 17 x 23mm oval, cystic lesion at 1 o'clock BB, aspiration for pain recommended, a 10 x 9 x 11mm oval, cystic lesion at 2 o'clock, a 5 x 5 x 5mm oval, cystic lesion at 4 o'clock, a 5 x 4 x 9mm oval, mixed lesion at 11 o'clock BB and a 4mm lymph node at the axilla. These results were verbally communicated with the patient and result sheet given to the patient on 08/13/19. ASSESSMENT: Suspicious, BI-RAD 4 RECOMMENDATION: Aspiration of the left breast. (for symptomatic relief, dense tissue, palpable) Attention 10 o'clock on follow up exam, patient is due in October 2019. Called Dr. Hernandez's office with mammographic findings and has scheduled an appointment for the patient for 08/13/19 at 11:[address] Sommer. Aspiration scheduled for 08/16/19 at 8:00. PRELIMINARY REPORT CALLED AND FAXED TO DR. SOMMER ON 08/13/19.
== END | disposition home or self-care (01) ==
LOC: RADUSWWP 09:14
PROVIDERS: ATTEND Obstetrics & Gynecology
DX: N64.4 Mastodynia (principal); N63.10 Unspecified lump in the right breast, unspecified quadrant; N63.20 Unspecified lump in the left breast, unspecified quadrant

== ENCOUNTER → 2019-08-16 | Day surgery (SDC) | payer OTHER ==
[2019-08-16 07:40] VITALS: RESP 18; TEMP 98
[2019-08-16 10:54] VITALS: BP 101/66; PULSE 80
--- NOTE | 2019-08-16 12:32 | USB ---
EXAMINATION TYPE: US breast aspiration single LT, US breast aspiration ea add LT DATE OF EXAM: 08/16/2019 CLINICAL HISTORY: 39-year-old female referred for ultrasound-guided symptomatic cyst aspiration, R92. 8 Abnormal Mammogram. TECHNIQUE: Ultrasound guided to site cyst aspiration left breast COMPARISON: 08/13/2019 and 05/20/2019 FINDINGS: The procedure of ultrasound guided core biopsy was explained to the patient. Benefits, alt ernatives, and risks were discussed. An informed consent was then obtained. The patient was placed in supine positioning for imaging and for the procedure. The overlying skin w as prepped and draped in usual sterile fashion. Lidocaine was used as anesthetic into the skin and s ubcutaneous tissue up to area of concern in each site within the left breast in turn. Site A, 1:00, 2.0 cm cyst: Under ultrasound guidance, an 18-gauge spinal needle was inserted into the cyst and aspiration yielded 2 mL's of milky, light brown fluid which was discarded. The cyst collaps ed completely. No clip was placed given the benign appearance of the fluid. Site B, 2:00 zone B/C 1 cm cyst: Under ultrasound guidance, an 18-gauge spinal needle was inserted in to the cyst and aspiration yielded 0.5 mL's of milky, gelatinous murky fluid which was discarded. The cyst collapsed completely. No clip was placed given the benign appearance of the fluid. The patient tolerated the procedure well without any immediate complication. The patient was kept in the radiology department for short stay after the procedure and then discharged home in stable condi tion. IMPRESSION: Successful, uncomplicated to site symptomatic cyst aspiration left breast. Fluid was discarded given benign appearance. No clip was placed. RECOMMENDATION: 1. If benign results, patient will be due for follow-up bilateral diagnostic mammograms in 3 months. 2. Bilateral breast ultrasounds can be performed at that time as well (particular attention right 10: 00, probable dense tissue, and left 11:00, mildly complex cyst/cyst cluster).
== END ==
LOC: RADUSWWP 07:15
PROVIDERS: ATTEND Surgery
DX: N60.02 Solitary cyst of left breast (principal)
CPT/HCPCS: 76942; 19000; 19001; J2001

== ENCOUNTER 2019-08-19 07:31 | Observation (INO) | payer OTHER ==
[2019-08-17 11:59] VITALS: BMI 22.4
--- NOTE | 2019-08-19 06:56 | P.HPOB ---
History of Present Illness H&P Date: 08/19/19 Chief Complaint: Menorrhagia 39-year-old presents for total laparoscopic hysterectomy with da Mian and diagnostic cystoscopy. Review of Systems All systems: negative Constitutional: Denies chills, Denies fever Eyes: denies blurred vision, denies pain Ears, nose, mouth and throat: Denies headache, Denies sore throat Cardiovascular: Denies chest pain, Denies shortness of breath Respiratory: Denies cough Gastrointestinal: Denies abdominal pain, Denies diarrhea, Denies nausea, Denies vomiting Genitourinary: Denies dysuria, Denies hematuria Musculoskeletal: Denies myalgias Integumentary: Denies pruritus, Denies rash Neurological: Denies numbness, Denies weakness Psychiatric: Denies anxiety, Denies depression Endocrine: Denies fatigue, Denies weight change Past Medical History Past Medical History: Blood Disorder, Supraventricular Tachycardia (SVT) Additional Past Medical History / Comment(s): Homozygous Factor V [place] deficiency; Endometriosis. Hx Dysplastic nevi. Has noticed increased pressure in lt eye. Recent sinus sx, began AB Rx 08/13/19. History of Any Multi-Drug Resistant Organisms: None Reported Past Surgical History: Cardiac Ablation, Cholecystectomy, Tubal Ligation Additional Past Surgical History / Comment(s): Rt Foot surg. left ovary/tube removed, cardiac ablation 3, right breast biopsy/benign, Lt breast bx Past Anesthesia/Blood Transfusion Reactions: Previous Problems w/ Anesthesia Additional Past Anesthesia/Blood Transfusion Reaction / Comment(s): Awoke up during surgery x1 as child Smoking Status: Never smoker - Past Family History Brother(s) Family Medical History: Deep Vein Thrombosis (DVT) Additional Family Medical History / Comment(s): Patient has one brother with history of DVT. He has factor V positive. Sister(s) Additional Family Medical History / Comment(s): Patient has 1 sister with no major medical problems. Patient has 3 daughters and to have one gene positive for factor V and 1 daughter has 2 genes. Father Family Medical History: Cancer, Coronary Artery Disease (CAD), Diabetes Mellitus, Myocardial Infarction ([place]) Additional Family Medical History / Comment(s): Melanoma Mother Family Medical History: Deep Vein Thrombosis (DVT), Myocardial Infarction ([place]), Pulmonary Embolus Medications and Allergies Home Medications Medication Instructions Recorded Confirmed Type Ibuprofen [Motrin] 800 mg PO Q8HR PRN 08/13/19 08/17/19 History ALPRAZolam [Xanax] 1 mg PO DIRECTED PRN 08/17/19 08/17/19 History Augmentin (Unknown Dose) 1 tab PO BID 08/17/19 History Phentermine HCl [Adipex-P] 37.5 mg PO DAILY 08/17/19 08/17/19 History Allergies Allergy/AdvReac Type Severity Reaction Status Date / Time adhesive tape Allergy BLISTERS" Verified 08/17/19 11:30 codeine AdvReac Severe Chest Pain Verified 08/17/19 11:30 hydromorphone HCl AdvReac Chest Pain Verified 08/17/19 11:30 [From Dilaudid] meperidine HCl [From Demerol] AdvReac Chest Pain Verified 08/17/19 11:30 nitroglycerin AdvReac Unknown Verified 08/17/19 11:30 [From Nitrostat] Exam Osteopathic Statement: *. No significant issues noted on an osteopathic structural exam other than those noted in the History and Physical/Consult. Heart: Regular rate and rhythm Lungs: Clear to auscultation bilaterally Abdomen: Soft, nontender Extremities: Negative Homans sign Assessment and Plan (1) Menorrhagia Status: Acute Code(s): N92.0 - EXCESSIVE AND FREQUENT MENSTRUATION WITH REGULAR CYCLE SNOMED Code(s): 914109022 Plan: 1. Total laparoscopic hysterectomy with da Mian and diagnostic cystoscopy
[~2019-08-19 07:31] MED LIST: DEXAMETHASONE SOD PHOSPHATE 10 MG/ML 1 ML VIAL IV ONE; LIDOCAINE 1% 20 ML VIAL (10MG/ML) FOR IV START INTRADERMA PRN; MIDAZOLAM 2 MG/2 ML VIAL IV PRN; fentaNYL (PF) 50 MCG/ML 2 ML AMP IV PRN
[2019-08-19] MEDS: LACTATED RINGERS 1,000 ML IV SCH ×2 (08:11→18:17)
[2019-08-19] MEDS ORDERED: IV FLUID CONTINUATION 1,000 ML IV ONE (08:12)
[2019-08-19] MEDS ORDERED: LIDOCAINE 1% 20 ML VIAL (10MG/ML) FOR IV START SQ ONE (08:13)
[2019-08-19] MEDS ORDERED: fentaNYL (PF) 50 MCG/ML 2 ML AMP IV ONE (08:32)
[2019-08-19] MEDS ORDERED: HEPARIN SODIUM,PORCINE 5,000 UNIT/ML 1 ML VIAL SQ ONE (08:49)
[2019-08-19] MEDS ORDERED: DEXAMETHASONE SOD PHOSPHATE 4 MG/ML 1 ML VIAL IV ONE (09:12)
[2019-08-19] MEDS: ONDANSETRON 4 MG/2 ML VIAL IVP ONE ×2 (09:12→11:17)
[2019-08-19] MEDS ORDERED: PROPOFOL 10 MG/ML 20 ML VIAL IV ONE (09:16)
[2019-08-19] MEDS ORDERED: SUCCINYLCHOLINE CHLORIDE 100 MG/5 ML SYR IV ONE (09:16)
[2019-08-19] MEDS ORDERED: fentaNYL (PF) 50 MCG/ML 2 ML AMP ONE (09:16)
[2019-08-19] MEDS ORDERED: KETAMINE 10 MG/ML 20 ML VIAL ONE (09:16)
[2019-08-19] MEDS ORDERED: NEOSTIGMINE 1 MG/ML 10 ML VIAL ONE (09:16)
[2019-08-19] MEDS ORDERED: MIDAZOLAM 2 MG/2 ML VIAL ONE (09:16)
[2019-08-19] MEDS ORDERED: ROCURONIUM BROMIDE 10 MG/ML 5 ML VIAL IV ONE (09:16)
[2019-08-19] MEDS ORDERED: ePHEDrine SULFATE/0.9% NACL/PF 50 MG/5 ML SYRINGE IV ONE (09:16)
[2019-08-19] MEDS ORDERED: LIDOCAINE 1% INJ 10MG/ML (20 ML MDV) ONE (09:16)
[2019-08-19] MEDS ORDERED: GLYCOPYRROLATE 0.2 MG/ML 2 ML VIAL ONE (09:16)
[2019-08-19] MEDS ORDERED: BUPIVACAINE (PF) 0.25% 30 ML VIAL SQ ONE (10:14)
--- NOTE | 2019-08-19 11:05 | P.OP ---
Date of Procedure: 08/19/19 Preoperative Diagnosis: Total laparoscopic hysterectomy and right salpingo-oophorectomy using da Mian and diagnostic cystoscopy Postoperative Diagnosis: 1. Menorrhagia 2. Dysmenorrhea 3. Factor V Leiden Procedure(s) Performed: 1. Menorrhagia 2. Dysmenorrhea 3. Factor V Leiden 4. Fibroid uterus Anesthesia: GETA Surgeon: Xin Hernandez Bobbin Painter #1: Dino Sánchez Estimated Blood Loss (ml): 100 IV fluids (ml): 600 Urine output (ml): 150 Pathology: other (Uterus, cervix, right fallopian tube and ovary) Condition: stable Disposition: PACU Operative Findings: Enlarged fibroid uterus that sounded to 10 cm. Normal-appearing right tube and ovary. Description of Procedure: Patient taken the operating room where general anesthesia was obtained without difficulty. She is prepped and draped in normal sterile fashion dorsal lithotomy position, legs placed in the Edson stirrups. Weighted speculum placed in the vagina and the anterior lip the cervix was grasped with single-tooth tenaculum. The uterus sounded to 10 cm and the cervix diameter was 3.5 cm. The appropriate manipulator tip and ring were placed on the Doreen manipulator. The Doreen manipulator was then placed in the uterus. Dyer catheter was also placed. Attention was then turned to the abdomen and gloves were changed. A 5 mm supraumbilical incision was made the scalpel and a 5 mm optical trocar was placed under direct visualization. 10 cm to the right of this and 2 cm down a 5 mm incision was made and 8 mm da Mian port was placed under direct visualization. Same measurements on the opposite side of the patient's abdomen, the 5 mm incision was made and 8 mm da Mian port was placed under direct visualization. In the left upper quadrant a 10 mm incision was made and a 10 mm optical trocar was placed under direct visualization. The 5 mm optical trocar was then replaced with the 8 mm da Mian camera port. The robot was docked on patient's right side. The camera was introduced and then the monopolar curved scissor and [place] bipolar placed under direct visualization. I broke scrub and went to the physician console. Survey of the pelvis revealed an enlarged fibroid uterus with good mobility. The right fallopian tube and ovary appear normal. The left fallopian tube and ovary are missing consistent with previous unilateral salpingectomy oophorectomy. The left round ligament was cauterized with the [place] bipolar and cut with monopolar curved scissors. The posterior leaf of the broad ligament was taken down using the monopolar curved scissors. Anterior leaf of the broad ligament was then taken down using the monopolar curved scissors. The uterine artery was cauterized with the [place] bipolar and cut with monopolar curved scissors. The bladder flap was then started using the monopolar curved scissors. Attention was then turned to the right side of the patient's anatomy and the right infundibulopelvic ligament was cauterized with the [place] bipolar and cut with monopolar curved scissors. The right round ligament was cauterized with the [place] bipolar and cut with monopolar curved scissors. Posterior leaf of the broad ligament was taken down using the monopolar curved scissors and the anterior leaf was taken down using the monopolar curved scissors. The uterine artery was cauterized the [place] bipolar cut with monopolar curved scissors. It was difficult to visualize the bladder flap at this time so I changed the camera out to a 30 scope. The anatomy was easier to visualize at this time. The bladder flap was then completely taken down. Anterior colpotomy was made using the monopolar curved scissors. The rest of the uterus was from the vaginal cuff by following the ring around with the monopolar curved scissors through the uterosacral ligaments back to the anterior portion. Once the uterus and cervix were amputated they were pulled through the vaginal cuff. Hemostasis was assured. The instruments were changed for the Cardier forcep and the sejal suture cut. The vaginal cuff was then closed using O stratafix barbed suture in a running fashion. Hemostasis was again assured and the pelvis was irrigated. All instruments were removed from the abdomen and the robot was undocked. I scrubbed back in to perform a cystoscopy. There were jets from both ureteral orifices. The abdominal incisions were closed with 4-0 Vicryl in a subcuticular fashion. Patient tolerated the procedure well, sponge and instrument counts correct 2 and she was taken to recovery room in stable condition condition
[2019-08-19] MEDS: HYDROmorphone 0.5 MG/0.5 ML SYRINGE IVP ONE ×3 (11:19→11:40)
[2019-08-19] MEDS ORDERED: diphenhydrAMINE 50 MG/ML 1 ML VIAL IVP ONE (11:20)
[2019-08-19] MEDS ORDERED: HYDROmorphone 1 MG/ML 1 ML SYRINGE IVP ONE (12:04)
[2019-08-19] MEDS ORDERED: fentaNYL (PF) 50 MCG/ML 2 ML AMP IVP ONE (12:20)
[2019-08-19] MEDS ORDERED: ZOLPIDEM 5 MG TAB PO PRN (12:39)
[2019-08-19] MEDS ORDERED: ONDANSETRON 4 MG/2 ML VIAL IVP PRN (12:39)
[2019-08-19] MEDS ORDERED: METOCLOPRAMIDE 5 MG/ML 2 ML VIAL IVP PRN (12:39)
[2019-08-19] MEDS ORDERED: ALPRAZolam 1 MG TAB PO PRN (12:39)
[2019-08-19] MEDS ORDERED: diphenhydrAMINE 50 MG/ML 1 ML VIAL IVP PRN (12:39)
[2019-08-19] MEDS: KETOROLAC 30 MG/ML 1 ML VIAL IVP PRN ×2 (13:37→19:50)
[2019-08-19] MEDS: HYDROcodone/APAP 7.5-325MG 1 EACH TAB PO PRN ×2 (16:24→22:41)
[2019-08-19] MEDS: SIMETHICONE 80 MG CHEWABLE PO PRN ×2 (16:37→21:29)
[2019-08-19] MEDS ORDERED: AUGMENTIN PO SCH (21:00)
[2019-08-19] MEDS: SENNOSIDES-DOCUSATE SODIUM 1 EACH TAB PO SCH (21:29)
[2019-08-19] MEDS: ENOXAPARIN 80 MG/0.8 ML SYRINGE SQ SCH (21:29)
[2019-08-20] MEDS: KETOROLAC 30 MG/ML 1 ML VIAL IVP PRN (04:10)
[2019-08-20] MEDS: HYDROcodone/APAP 7.5-325MG 1 EACH TAB PO PRN ×3 (07:28→21:37)
[2019-08-20 07:39] LABS: Basophils % (A) 0 %; Eosinophils # (A) 0.1 k/uL (0-0.7); Eosinophils % (A) 2 %; HCT 34.1 % (34.0-46.0); HGB 11.4 gm/dL (11.4-16.0); Lymphocytes # (A) 1.6 k/uL (1.0-4.8); Lymphocytes % (A) 19 %; MCHC 33.4 g/dL (31.0-37.0); MCV 86.7 fL (80.0-100.0); Mean Platelet Volume 7.4; Monocytes # (A) 0.2 k/uL (0-1.0); Monocytes % (A) 3 %; Neutrophils # (A) 6.3 k/uL (1.3-7.7); Neutrophils % (A) 75 %; Platelet Count 245 k/uL (150-450); RBC 3.94 m/uL (3.80-5.40); RDW 12.5 % (11.5-15.5); WBC 8.4 k/uL (3.8-10.6)
--- NOTE | 2019-08-20 08:46 | P.PN ---
Progress Note - Text Progress Note Date: 08/20/19 S/P TLH RSO with da marco and diagnostic cystoscopy POD #1. Patient was seen and examined in bed. She has had some presyncopal episodes when she tries to use the bathroom. She has some excessive gas discomfort, she feels like she does need to have flatus but it has not passed yet. She denies nausea, vomiting, chest pain, shortness of breath or any calf pain. I did discuss her case with Dr. Simmons the welding operator yesterday. He recommended full anticoagulation for her factor V homozygous status. I Prescribed her Lovenox 80 mg daily. She started that last night. I'll ask discharge planning to help me get this medication for her and teach her how to help her give it. Currently her pain is not controlled to do the gas pain, so I will check again on her this afternoon to see if she is ready for discharge. Her incisions are clean, dry, intact with stitches and glue. Assessment 1. Status post total laparoscopic hysterectomy right salpingo- oophorectomy with da Marco and diagnostic cystoscopy postop day #1 Plan 1. Consult with discharge planning regarding Lovenox prescription 2. We will increase ambulation, give Mylicon, stool softeners to help with the intestinal discomfort.
[2019-08-20] MEDS: SENNOSIDES-DOCUSATE SODIUM 1 EACH TAB PO SCH ×2 (08:52→21:36)
[2019-08-20] MEDS: IBUPROFEN 800 MG TAB PO PRN ×2 (11:21→19:45)
[2019-08-20] MEDS: SIMETHICONE 80 MG CHEWABLE PO PRN ×3 (11:23→21:35)
[2019-08-20] MEDS: ENOXAPARIN 80 MG/0.8 ML SYRINGE SQ SCH (21:39)
[2019-08-21] MEDS: IBUPROFEN 800 MG TAB PO PRN (03:34)
--- NOTE | 2019-08-21 07:05 | P.PN ---
Progress Note - Text Progress Note Date: 08/21/19 Postoperative day #2. Patient is resting without new complaints she is feeling much better. Patient is tolerating regular diet, ambulating, urinating without difficulty. Her pain appears to be controlled. My impression is a normal postop. Plan is to continue routine postoperative care and discharge home later today
--- NOTE | 2019-08-21 07:10 | P.DS ---
Providers Date of admission: 08/20/19 04:10 Expected date of discharge: 08/21/19 Attending physician: Xin Hernandez Primary care physician: Domenico [facility] Course: Please see dictated H&P and operative note per Dr. Hernandez on this patient's admission. Brief summary this is a 39-year-old female underwent a robotic hysterectomy right salpingo-oophorectomy. Postoperatively she did have some pain control issues however by postoperative #2 the's were controlled and the patient was doing very well. Patient's felt be stable for discharge home follow up with Dr. Hernandez 1 week for an incision check. Procedures: Da Mian laparoscopic hysterectomy with right salpingo-oophorectomy Patient Condition at Discharge: Good Plan - Discharge Summary Discharge Rx Participant: Yes New Discharge Prescriptions: New Enoxaparin [Lovenox] 80 mg SQ HS 30 Days #30 syringe HYDROcodone/APAP 7.5-325MG [[place] 7.5-325] 1 each PO Q6H PRN #12 tab PRN Reason: Pain Continue Ibuprofen [Motrin] 800 mg PO Q8HR PRN #30 tab PRN Reason: Pain No Action ALPRAZolam [Xanax] 1 mg PO DIRECTED PRN PRN Reason: Anxiety Phentermine HCl [Adipex-P] 37.5 mg PO DAILY Discharge Medication List ALPRAZolam [Xanax] 1 mg PO DIRECTED PRN 08/17/19 [History] Phentermine HCl [Adipex-P] 37.5 mg PO DAILY 08/17/19 [History] Enoxaparin [Lovenox] 80 mg SQ HS 30 Days #30 syringe 08/20/19 [Rx] HYDROcodone/APAP 7.5-325MG [[place] 7.5-325] 1 each PO Q6H PRN #12 tab 08/20/19 [Rx] Ibuprofen [Motrin] 800 mg PO Q8HR PRN #30 tab 08/20/19 [Rx] Follow up Appointment(s)/Referral(s): Xin Hernandez DO [Doctor of Osteopathic Medicine] - 3 Weeks Patient Instructions/Handouts: Laparoscopic Hysterectomy (DC) Activity/Diet/Wound Care/Special Instructions: No heavy lifting or strenuous activities for 6 weeks. No intercourse or anything per vagina for 6 weeks. Please call if any fever, chills, excessive vaginal bleeding, and/or abdominal pain. Discharge Disposition: HOME SELF-CARE
[2019-08-21] MEDS: HYDROcodone/APAP 7.5-325MG 1 EACH TAB PO PRN (07:40)
[2019-08-21] MEDS: SIMETHICONE 80 MG CHEWABLE PO PRN (07:42)
[2019-08-21] MEDS: SENNOSIDES-DOCUSATE SODIUM 1 EACH TAB PO SCH (07:42)
[2019-08-21 07:59] VITALS: BP 119/74; PULSE 84; RESP 18; TEMP 97.8
== END 2019-08-21 08:15 | disposition home or self-care (01) ==
LOC: OR 07:31 → 4FBP 11:01 → OR 08-20 04:10
PROVIDERS: ADMIT Obstetrics & Gynecology; ATTEND Obstetrics & Gynecology
DX: N92.0 Excessive and frequent menstruation with regular cycle (principal); N94.6 Dysmenorrhea, unspecified; D25.9 Leiomyoma of uterus, unspecified; D68.51 Activated protein C resistance; N80.9 Endometriosis, unspecified; N83.201 Unspecified ovarian cyst, right side; Z90.49 Acquired absence of other specified parts of digestive tract; Z79.1 Long term (current) use of non-steroidal anti-inflammatories (NSAID); Z79.2 Long term (current) use of antibiotics; Z79.899 Other long term (current) drug therapy; Z88.5 Allergy status to narcotic agent; Z88.8 Allergy status to other drugs, medicaments and biological substances; Z91.048 Other nonmedicinal substance allergy status; Z83.3 Family history of diabetes mellitus; Z82.49 Family history of ischemic heart disease and other diseases of the circulatory system; Z80.8 Family history of malignant neoplasm of other organs or systems; Z84.89 Family history of other specified conditions
CPT/HCPCS: 58571; S2900; 81025; 85025; 86850; 86900; 86901; 88307

== ENCOUNTER 2019-09-29 12:23 | Emergency (ER) | payer OTHER ==
--- NOTE | 2019-09-29 12:48 | ED ---
SOB HPI - General Chief Complaint: Shortness of Breath Stated Complaint: SOB, 5 WEEK POST OP Time Seen by Provider: 09/29/19 12:38 Source: patient, RN notes reviewed Mode of arrival: ambulatory Limitations: no limitations - History of Present Illness Initial Comments: This a 39-year-old female presents emergency Department chief complaint chest pain, shortness breath, leg swelling. Patient states that she had hysterectomy by Dr. Ryan 5 weeks ago. She's developed left-sided pain, dyspnea, pleuritic chest pain. Patient states having his finger left side. Patient states that she does have a factor V Leiden. Patient was on blood thinners for 30 days postop states that she is not on any current blood thinners. Patient is concerned that she may have a blood clot. Patient has no complaints of any fevers or chills. Patient denies any blurred vision no focal weakness. Patient does admit she is very anxious. - Related Data Home Medications Medication Instructions Recorded Confirmed ALPRAZolam [Xanax] 1 mg PO DIRECTED PRN 08/17/19 08/19/19 Phentermine HCl [Adipex-P] 37.5 mg PO DAILY 08/17/19 08/17/19 Previous Rx's Medication Instructions Recorded Enoxaparin [Lovenox] 80 mg SQ HS 30 Days #30 syringe 08/20/19 HYDROcodone/APAP 7.5-325MG [[place] 1 each PO Q6H PRN #12 tab 08/20/19 7.5-325] Ibuprofen [Motrin] 800 mg PO Q8HR PRN #30 tab 08/20/19 Allergies Allergy/AdvReac Type Severity Reaction Status Date / Time adhesive tape Allergy BLISTERS" Verified 09/29/19 12:31 codeine AdvReac Severe Chest Pain Verified 09/29/19 12:31 meperidine HCl [From Demerol] AdvReac Chest Pain Verified 09/29/19 12:31 nitroglycerin AdvReac Unknown Verified 09/29/19 12:31 [From Nitrostat] Review of Systems ROS Statement: Those systems with pertinent positive or pertinent negative responses have been documented in the HPI. ROS Other: All systems not noted in ROS Statement are negative. Past Medical History Past Medical History: Supraventricular Tachycardia (SVT) Additional Past Medical History / Comment(s): Homozygous Factor V deficiency, endometriosis History of Any Multi-Drug Resistant Organisms: None Reported Past Surgical History: Hysterectomy Additional Past Surgical History / Comment(s): left ovary removed, cardiac ablation 3, right breast biopsy/benign Past Anesthesia/Blood Transfusion Reactions: No Reported Reaction Additional Past Anesthesia/Blood Transfusion Reaction / Comment(s): Awoke up during surgery x1 as child Past Psychological History: No Psychological Hx Reported Smoking Status: Never smoker Past Alcohol Use History: None Reported Past Drug Use History: None Reported - Past Family History Brother(s) Family Medical History: Deep Vein Thrombosis (DVT) Additional Family Medical History / Comment(s): Patient has one brother with history of DVT. He has factor V positive. Sister(s) Additional Family Medical History / Comment(s): Patient has 1 sister with no major medical problems. Patient has 3 daughters and to have one gene positive for factor V and 1 daughter has 2 genes. Father Family Medical History: Cancer, Coronary Artery Disease (CAD), Diabetes Mellitus, Myocardial Infarction ([place]) Mother Family Medical History: Deep Vein Thrombosis (DVT), Myocardial Infarction ([place]), Pulmonary Embolus General Exam Limitations: no limitations General appearance: alert, in no apparent distress, anxious Head exam: Present: atraumatic, normocephalic, normal inspection Eye exam: Present: normal appearance, PERRL, EOMI. Absent: scleral icterus, conjunctival injection, periorbital swelling ENT exam: Present: normal exam, normal oropharynx, mucous membranes moist Neck exam: Present: normal inspection. Absent: tenderness, meningismus, lymphadenopathy Respiratory exam: Present: normal lung sounds bilaterally. Absent: respiratory distress, wheezes, rales, rhonchi, stridor Cardiovascular Exam: Present: normal rhythm, tachycardia, normal heart sounds. Absent: systolic murmur, diastolic murmur, rubs, gallop, clicks GI/Abdominal exam: Present: soft, tenderness (Minimal), normal bowel sounds. Absent: distended, guarding, rebound, rigid Neurological exam: Present: alert, oriented X3, CN II-XII intact Psychiatric exam: Present: anxious (Patient is found to be very anxious) Skin exam: Present: warm, dry, intact, normal color. Absent: rash Course Vital Signs 09/29/19 09/29/19 12:27 14:13 Temperature 98.3 F Pulse Rate 129 H 86 Respiratory 28 H 20 Rate Blood Pressure 122/84 106/68 O2 Sat by Pulse 100 100 Oximetry Medical Decision Making - Medical Decision Making Patient's CT of the chest, from a negative for DVT. Patient's laboratory unremarkable. Patient feels greatly improved at this time. Patient was very anxious, having a panic attack upon arrival. Patient may have some underlying pleurisy versus costochondritis Patient Discharged in Stable Condition. - Lab Data Result diagrams: 09/29/19 13:06 09/29/19 13:48 Lab Results 09/29/19 09/29/19 09/29/19 Range/Units 13:06 13:48 13:48 WBC 5.9 (3.8-10.6) k/uL RBC 5.04 (3.80-5.40) m/uL Hgb 14.4 D (11.4-16.0) gm/dL Hct 42.3 (34.0-46.0) % MCV 83.9 (80.0-100.0) fL MCH 28.5 (25.0-35.0) pg MCHC 34.0 (31.0-37.0) g/dL RDW 12.3 (11.5-15.5) % Plt Count 356 (150-450) k/uL Neutrophils % 62 % Lymphocytes % 28 % Monocytes % 4 % Eosinophils % 4 % Basophils % 1 % Neutrophils # 3.7 (1.3-7.7) k/uL Lymphocytes # 1.7 (1.0-4.8) k/uL Monocytes # 0.2 (0-1.0) k/uL Eosinophils # 0.2 (0-0.7) k/uL Basophils # 0.0 (0-0.2) k/uL PT 11.3 (9.0-12.0) sec INR 1.1 (<1.2) APTT 24.3 (22.0-30.0) sec D-Dimer 0.32 (<0.60) mg/L FEU Sodium 136 L (137-145) mmol/L Potassium 4.0 (3.5-5.1) mmol/L Chloride 99 (98-107) mmol/L Carbon Dioxide 29 (22-30) mmol/L Anion Gap 8 mmol/L BUN 16 (7-17) mg/dL Creatinine 0.63 (0.52-1.04) mg/dL Est GFR (CKD-EPI)AfAm >90 (>60 ml/min/1.73 sqM) Est GFR (CKD-EPI)NonAf >90 (>60 ml/min/1.73 sqM) Glucose 79 (74-99) mg/dL Plasma Lactic Acid Gerson (0.7-2.0) mmol/L Calcium 9.6 (8.4-10.2) mg/dL Magnesium 2.0 (1.6-2.3) mg/dL Total Bilirubin 0.3 (0.2-1.3) mg/dL AST 26 (14-36) U/L ALT 25 (4-34) U/L Alkaline Phosphatase 96 (38-126) U/L Troponin I (0.000-0.034) ng/mL Total Protein 7.3 (6.3-8.2) g/dL Albumin 4.3 (3.5-5.0) g/dL 09/29/19 09/29/19 Range/Units 13:48 13:48 WBC (3.8-10.6) k/uL RBC (3.80-5.40) m/uL Hgb (11.4-16.0) gm/dL Hct (34.0-46.0) % MCV (80.0-100.0) fL MCH (25.0-35.0) pg MCHC (31.0-37.0) g/dL RDW (11.5-15.5) % Plt Count (150-450) k/uL Neutrophils % % Lymphocytes % % Monocytes % % Eosinophils % % Basophils % % Neutrophils # (1.3-7.7) k/uL Lymphocytes # (1.0-4.8) k/uL Monocytes # (0-1.0) k/uL Eosinophils # (0-0.7) k/uL Basophils # (0-0.2) k/uL PT (9.0-12.0) sec INR (<1.2) APTT (22.0-30.0) sec D-Dimer (<0.60) mg/L FEU Sodium (137-145) mmol/L Potassium (3.5-5.1) mmol/L Chloride (98-107) mmol/L Carbon Dioxide (22-30) mmol/L Anion Gap mmol/L BUN (7-17) mg/dL Creatinine (0.52-1.04) mg/dL Est GFR (CKD-EPI)AfAm (>60 ml/min/1.73 sqM) Est GFR (CKD-EPI)NonAf (>60 ml/min/1.73 sqM) Glucose (74-99) mg/dL Plasma Lactic Acid Gerson 0.8 (0.7-2.0) mmol/L Calcium (8.4-10.2) mg/dL Magnesium (1.6-2.3) mg/dL Total Bilirubin (0.2-1.3) mg/dL AST (14-36) U/L ALT (4-34) U/L Alkaline Phosphatase (38-126) U/L Troponin I <0.012 (0.000-0.034) ng/mL Total Protein (6.3-8.2) g/dL Albumin (3.5-5.0) g/dL Disposition Clinical Impression: Pleuritic chest pain, Chest wall pain Disposition: HOME SELF-CARE Condition: Stable Instructions (If sedation given, give patient instructions): Chest Pain (ED), Costochondritis (ED) Additional Instructions: Please return to the Emergency Department if symptoms worsen or any other concerns. Is patient prescribed a controlled substance at d/c from ED?: No Referrals: Domenico Rogers DO [Primary Care Provider] - 1-2 days Time of Disposition: 14:53
[2019-09-29 13:30] LABS: Basophils % (A) 1 %; Eosinophils # (A) 0.2 k/uL (0-0.7); Eosinophils % (A) 4 %; HCT 42.3 % (34.0-46.0); Lymphocytes # (A) 1.7 k/uL (1.0-4.8); Lymphocytes % (A) 28 %; MCH 28.5 pg (25.0-35.0); MCV 83.9 fL (80.0-100.0); Mean Platelet Volume 7.9; Monocytes # (A) 0.2 k/uL (0-1.0); Monocytes % (A) 4 %; Neutrophils # (A) 3.7 k/uL (1.3-7.7); Neutrophils % (A) 62 %; Platelet Count 356 k/uL (150-450); RBC 5.04 m/uL (3.80-5.40); RDW 12.3 % (11.5-15.5); WBC 5.9 k/uL (3.8-10.6)
[2019-09-29 13:35] LABS: HGB 14.4 gm/dL (11.4-16.0)
--- NOTE | 2019-09-29 13:55 | CT ---
EXAMINATION TYPE: CT chest angio for PE DATE OF EXAM: 09/29/2019 COMPARISON: 10/04/2018 HISTORY: chest pain, SOB, left leg swelling post hystero [address] DLP: 217.8 mGycm. Automated Exposure Control for Dose Reduction was Utilized. CONTRAST: CTA scan of the thorax is performed with IV Contrast, patient injected with 100 mL of Isovue 370, pul monary embolism protocol. MIP Images are created on CT scanner and reviewed. FINDINGS: LUNGS: There is a 3 mm pulmonary nodule of the anterior left upper lobe on image 31 that appears new from the prior exam of 10/04/2018. Vague questionable pulmonary nodules are seen in the right upper lob e on image 31 posterior medially and in the right lower lobe on image 59. Nodular density in the righ t infrahilar region is low-density and soft tissue window and likely relates to a nonenlarged lymph n ode. This is marked on soft tissue algorithm image 75 and lung algorithm also image 75. Focal consoli dation seen. Very minimal bibasilar atelectasis. There is no pleural effusion or pneumothorax seen. The tracheobronchial tree is patent. MEDIASTINUM: There is satisfactory enhancement of the pulmonary artery and its branches, there is no CT evidence for pulmonary embolism. Limited evaluation for coronary artery calcifications given the phase of contrast. No gross evidence of coronary calcifications seen. No evidence of dissection of th e thoracic aorta although the aortic root is somewhat limited given pulsation artifact. There are no greater than 1 cm hilar or mediastinal lymph nodes. No cardiomegaly or pericardial effusion is seen . OTHER: Very minimal degenerative disc disease of the spine. IMPRESSION: 1. No evidence of pulmonary embolus. 2. New 3 mm left upper lobe pulmonary nodule in comparison to the prior of 2018 and vague possible 3 mm right lower and upper lobe pulmonary nodules. Consensus criteria recommends follow-up CT in 12 mon ths to evaluate for stability. Nodular density measuring 5 mm along the right infrahilar region that likely relates to a nonenlarged lymph node can also be reevaluated at this time.
[2019-09-29] MEDS ORDERED: KETOROLAC 30 MG/ML 1 ML VIAL IVP STA (14:01)
[2019-09-29 14:15] LABS: D-Dimer 0.32 mg/L FEU (<0.60); INR 1.1 (<1.2); Partial Thromboplastin Time 24.3 sec (22.0-30.0); Prothrombin Time 11.3 sec (9.0-12.0)
[2019-09-29 14:20] LABS: ALT 25 U/L (4-34); AST 26 U/L (14-36); African American GFR (CKD) >90 (>60 ml/min/1.73 sqM); Albumin 4.3 g/dL (3.5-5.0); Alkaline Phosphatase 96 U/L (38-126); Anion Gap 8 mmol/L; Blood Urea Nitrogen 16 mg/dL (7-17); Calcium 9.6 mg/dL (8.4-10.2); Carbon Dioxide 29 mmol/L (22-30); Chloride 99 mmol/L (98-107); Glucose 79 mg/dL (74-99); Non-African American GFR(CKD) >90 (>60 ml/min/1.73 sqM); Sodium 136 mmol/L (137-145); Total Bilirubin 0.3 mg/dL (0.2-1.3); Total Protein 7.3 g/dL (6.3-8.2)
--- NOTE | 2019-09-29 14:41 | US ---
EXAMINATION TYPE: US venous doppler duplex LE LT DATE OF EXAM: 09/29/2019 2:00 PM COMPARISON: NONE CLINICAL HISTORY: leg swelling. Left leg swelling per patient SIDE PERFORMED: Left TECHNIQUE: The lower extremity deep venous system is examined utilizing real time linear array sonog yohan with graded compression, doppler sonography and color-flow sonography. VESSELS IMAGED: External Iliac Vein (EIV) Common Femoral Vein Deep Femoral Vein Greater Saphenous Vein * Femoral Vein Popliteal Vein Small Saphenous Vein * Proximal Calf Veins (* superficial vessels) Left Leg: Negative for DVT Grayscale, color doppler, spectral doppler imaging performed of the deep veins of the left lower extr emity. There is normal flow, compressibility, vascular waveforms. IMPRESSION: No sonographic evidence of deep venous thrombosis within the left lower extremity.
[2019-09-29 15:08] VITALS: BP 110/70; PULSE 81; RESP 18; TEMP 98.2
== END 2019-09-29 15:06 | disposition home or self-care (01) ==
LOC: EC 12:23
DX: R07.89 Other chest pain (principal); R07.1 Chest pain on breathing; Z79.01 Long term (current) use of anticoagulants; Z91.048 Other nonmedicinal substance allergy status; Z88.5 Allergy status to narcotic agent; Z88.8 Allergy status to other drugs, medicaments and biological substances; Z90.710 Acquired absence of both cervix and uterus
CPT/HCPCS: 36415; 93005; 85379; 80053; 83605; 83735; 84484; 85025; 85610; 85730; 93971; 71275; 99285; 96374; J1885; Q9967

== ENCOUNTER 2020-01-01 22:42 | Emergency (ER) | payer OTHER ==
[2020-01-01 22:52] VITALS: BP 131/107; PULSE 90; RESP 18; TEMP 97.6
--- NOTE | 2020-01-01 23:49 | ED ---
General Adult HPI - General Chief complaint: Alcohol Stated complaint: ETOH Time Seen by Provider: 01/01/20 23:15 Source: EMS Mode of arrival: EMS Limitations: no limitations - History of Present Illness Initial comments: Cecy is a 39 yo female who presents to the ED today via EMS for evaluation of intoxication. Her significant other at bedside the patient very rarely drinks alcohol and tonight was heavily drinking and had nearly half a bottle of tequila and became belligerent. Family is concerned about the safety of her falling asleep unmonitored brought her to the ER for evaluation. - Related Data Home Medications Medication Instructions Recorded Confirmed ALPRAZolam [Xanax] 1 mg PO DIRECTED PRN 08/17/19 08/19/19 Phentermine HCl [Adipex-P] 37.5 mg PO DAILY 08/17/19 08/17/19 Previous Rx's Medication Instructions Recorded Enoxaparin [Lovenox] 80 mg SQ HS 30 Days #30 syringe 08/20/19 HYDROcodone/APAP 7.5-325MG [[place] 1 each PO Q6H PRN #12 tab 08/20/19 7.5-325] Ibuprofen [Motrin] 800 mg PO Q8HR PRN #30 tab 08/20/19 Allergies Allergy/AdvReac Type Severity Reaction Status Date / Time adhesive tape Allergy BLISTERS" Verified 01/01/20 22:52 codeine AdvReac Severe Chest Pain Verified 01/01/20 22:52 meperidine HCl [From Demerol] AdvReac Chest Pain Verified 01/01/20 22:52 nitroglycerin AdvReac Unknown Verified 01/01/20 22:52 [From Nitrostat] Review of Systems ROS Statement: Those systems with pertinent positive or pertinent negative responses have been documented in the HPI. ROS Other: All systems not noted in ROS Statement are negative. Past Medical History Past Medical History: Supraventricular Tachycardia (SVT) Additional Past Medical History / Comment(s): Homozygous Factor V deficiency, endometriosis History of Any Multi-Drug Resistant Organisms: None Reported Past Surgical History: Hysterectomy Additional Past Surgical History / Comment(s): left ovary removed, cardiac ablation 3, right breast biopsy/benign Past Anesthesia/Blood Transfusion Reactions: No Reported Reaction Additional Past Anesthesia/Blood Transfusion Reaction / Comment(s): Awoke up during surgery x1 as child Past Psychological History: No Psychological Hx Reported Smoking Status: Never smoker Past Alcohol Use History: None Reported Past Drug Use History: None Reported - Past Family History Brother(s) Family Medical History: Deep Vein Thrombosis (DVT) Additional Family Medical History / Comment(s): Patient has one brother with history of DVT. He has factor V positive. Sister(s) Additional Family Medical History / Comment(s): Patient has 1 sister with no major medical problems. Patient has 3 daughters and to have one gene positive for factor V and 1 daughter has 2 genes. Father Family Medical History: Cancer, Coronary Artery Disease (CAD), Diabetes Mellitus, Myocardial Infarction ([place]) Mother Family Medical History: Deep Vein Thrombosis (DVT), Myocardial Infarction ([place]), Pulmonary Embolus General Exam - General Exam Comments Initial Comments: Physical Exam GENERAL: Patient is well-developed and well-nourished. HENT: Normocephalic, Atraumatic. EYES: PERRL, EOMI PULMONARY: Unlabored respirations. CARDIOVASCULAR: RRR Warm and well perfused extremities ABDOMEN: Non-distended SKIN: No rashes or bruising : Deferred NEUROLOGIC: Alert and oriented Speech is slurred consistent with intoxication MUSCULOSKELETAL: Moving all extremities with no apparent injury PSYCHIATRIC: No SI/HI Limitations: no limitations Course Vital Signs 01/01/20 22:46 Temperature 97.6 F Pulse Rate 90 Respiratory 18 Rate Blood Pressure 131/107 O2 Sat by Pulse 98 Oximetry Medical Decision Making - Medical Decision Making Patient presented via EMS for evaluation of intoxication. Apparently patient was belligerent. Upon arrival she is crying awake alert and oriented. Patient was evaluated here and observed for nearly 2 hours, she began call and was resting at this time her significant other's comfortable taking her home. He is aware she is still intoxicated feels comfortable taking her home to sleep. She comfortable being discharged at this time. Disposition Clinical Impression: Alcoholic intoxication Disposition: HOME SELF-CARE Condition: Stable Instructions (If sedation given, give patient instructions): Alcohol Intoxication (ED) Is patient prescribed a controlled substance at d/c from ED?: No Referrals: Domenico Rogers DO [Primary Care Provider] - 1-2 days
== END 2020-01-02 01:01 | disposition home or self-care (01) ==
LOC: EC 22:42
DX: F10.129 Alcohol abuse with intoxication, unspecified (principal); Z79.899 Other long term (current) drug therapy; Z91.048 Other nonmedicinal substance allergy status; Z88.5 Allergy status to narcotic agent; Z88.8 Allergy status to other drugs, medicaments and biological substances; Y90.9 Presence of alcohol in blood, level not specified
CPT/HCPCS: 99283

== ENCOUNTER 2020-05-03 03:22 | Emergency (ER) | payer OTHER ==
[2020-05-03] MEDS ORDERED: MAG HYDROX/AL HYDROX/SIMETH 30 ML, HYOSCYAMINE ELIXIR 10 ML, LIDOCAINE VISCOUS 2% 10 ML PO STA ×3 (03:35)
--- NOTE | 2020-05-03 03:36 | ED ---
Chest Pain HPI - General Stated Complaint: Chest Pain Time Seen by Provider: 05/03/20 03:26 - History of Present Illness MD Complaint: chest pain Onset/Timin -: hour(s) Onset: awoke with symptoms Pain Location: substernal Pain Radiation: none Severity: moderate Quality: other (burning) Improves With: nothing Worsens With: nothing Treatments Prior to Arrival: none - Related Data Home Medications Medication Instructions Recorded Confirmed ALPRAZolam [Xanax] 1 mg PO DIRECTED PRN 08/17/19 08/19/19 Phentermine HCl [Adipex-P] 37.5 mg PO DAILY 08/17/19 08/17/19 Previous Rx's Medication Instructions Recorded Enoxaparin [Lovenox] 80 mg SQ HS 30 Days #30 syringe 08/20/19 HYDROcodone/APAP 7.5-325MG [[place] 1 each PO Q6H PRN #12 tab 08/20/19 7.5-325] Ibuprofen [Motrin] 800 mg PO Q8HR PRN #30 tab 08/20/19 Famotidine [Pepcid] 20 mg PO BID #14 tablet 05/03/20 Lidocaine Viscous [Xylocaine 5 ml PO Q3HR PRN #100 ml 05/03/20 Viscous 2%] Allergies Allergy/AdvReac Type Severity Reaction Status Date / Time adhesive tape Allergy BLISTERS" Verified 05/03/20 03:42 codeine AdvReac Severe Chest Pain Verified 05/03/20 03:42 meperidine HCl [From Demerol] AdvReac Chest Pain Verified 05/03/20 03:42 nitroglycerin AdvReac Unknown Verified 05/03/20 03:42 [From Nitrostat] Review of Systems ROS Statement: Those systems with pertinent positive or pertinent negative responses have been documented in the HPI. ROS Other: All systems not noted in ROS Statement are negative. Constitutional: Denies: fever, chills Respiratory: Denies: cough, dyspnea Cardiovascular: Reports: chest pain. Denies: palpitations, edema, syncope Gastrointestinal: Denies: abdominal pain, nausea, vomiting, diarrhea Genitourinary: Denies: dysuria, hematuria Musculoskeletal: Denies: back pain Skin: Denies: rash Neurological: Denies: headache, weakness, numbness EKG Findings - EKG Results: EKG: interpreted by ERMD, WNL, sinus rhythm (Rate 85 bpm), normal axis, normal QRS, normal ST/T Past Medical History Past Medical History: Supraventricular Tachycardia (SVT) Additional Past Medical History / Comment(s): Homozygous Factor V deficiency, endometriosis History of Any Multi-Drug Resistant Organisms: None Reported Past Surgical History: Hysterectomy Additional Past Surgical History / Comment(s): left ovary removed, cardiac ablation 3, right breast biopsy/benign Past Anesthesia/Blood Transfusion Reactions: No Reported Reaction Additional Past Anesthesia/Blood Transfusion Reaction / Comment(s): Awoke up during surgery x1 as child Past Psychological History: No Psychological Hx Reported Past Alcohol Use History: None Reported Past Drug Use History: None Reported - Past Family History Brother(s) Family Medical History: Deep Vein Thrombosis (DVT) Additional Family Medical History / Comment(s): Patient has one brother with history of DVT. He has factor V positive. Sister(s) Additional Family Medical History / Comment(s): Patient has 1 sister with no major medical problems. Patient has 3 daughters and to have one gene positive for factor V and 1 daughter has 2 genes. Father Family Medical History: Cancer, Coronary Artery Disease (CAD), Diabetes Mellitus, Myocardial Infarction ([place]) Mother Family Medical History: Deep Vein Thrombosis (DVT), Myocardial Infarction ([place]), Pulmonary Embolus General Exam General appearance: alert, in no apparent distress Head exam: Present: atraumatic, normocephalic Eye exam: Present: normal appearance. Absent: scleral icterus, conjunctival injection ENT exam: Present: normal oropharynx Neck exam: Present: normal inspection Respiratory exam: Present: normal lung sounds bilaterally. Absent: respiratory distress, wheezes, rales, rhonchi, stridor, chest wall tenderness Cardiovascular Exam: Present: regular rate, normal rhythm, normal heart sounds. Absent: systolic murmur, diastolic murmur, rubs, gallop GI/Abdominal exam: Present: soft. Absent: distended, tenderness, guarding, rebound, rigid, mass Extremities exam: Present: normal inspection, normal capillary refill. Absent: pedal edema, calf tenderness Back exam: Present: normal inspection. Absent: CVA tenderness (R), CVA tenderness (L) Neurological exam: Present: alert Skin exam: Present: warm, dry, intact, normal color. Absent: rash Course Vital Signs 05/03/20 05/03/20 03:37 05:02 Temperature 97.4 F L Pulse Rate 85 70 Respiratory 24 17 Rate Blood Pressure 121/91 118/72 O2 Sat by Pulse 100 98 Oximetry Disposition Clinical Impression: Chest pain Disposition: HOME SELF-CARE Condition: Good Instructions (If sedation given, give patient instructions): Chest Pain (ED) Prescriptions: Famotidine [Pepcid] 20 mg PO BID #14 tablet Lidocaine Viscous [Xylocaine Viscous 2%] 5 ml PO Q3HR PRN #100 ml PRN Reason: Sore Throat Is patient prescribed a controlled substance at d/c from ED?: No Referrals: Domenico Rogers DO [Primary Care Provider] - 1-2 days
[2020-05-03 03:41] VITALS: TEMP 97.4
[2020-05-03] MEDS ORDERED: ONDANSETRON ODT 4 MG TAB PO STA (03:50)
[2020-05-03 04:04] LABS: Basophils % (A) 1 %; Eosinophils # (A) 0.2 k/uL (0-0.7); Eosinophils % (A) 4 %; HCT 42.4 % (34.0-46.0); Lymphocytes # (A) 1.9 k/uL (1.0-4.8); Lymphocytes % (A) 43 %; MCH 28.7 pg (25.0-35.0); MCV 86.9 fL (80.0-100.0); Mean Platelet Volume 7.4; Monocytes # (A) 0.3 k/uL (0-1.0); Monocytes % (A) 6 %; Neutrophils % (A) 44 %; Platelet Count 259 k/uL (150-450); RBC 4.88 m/uL (3.80-5.40); RDW 12.4 % (11.5-15.5); WBC 4.5 k/uL (3.8-10.6)
[2020-05-03 04:15] LABS: ALT 13 U/L (4-34); AST 26 U/L (14-36); African American GFR (CKD) >90 (>60 ml/min/1.73 sqM); Albumin 4.2 g/dL (3.5-5.0); Alkaline Phosphatase 80 U/L (38-126); Anion Gap 8 mmol/L; Blood Urea Nitrogen 17 mg/dL (7-17); Calcium 9.8 mg/dL (8.4-10.2); Carbon Dioxide 26 mmol/L (22-30); Chloride 103 mmol/L (98-107); Glucose 105 mg/dL (74-99); Magnesium 2.1 mg/dL (1.6-2.3); Non-African American GFR(CKD) 89 (>60 ml/min/1.73 sqM); Potassium 3.7 mmol/L (3.5-5.1); Sodium 137 mmol/L (137-145); Total Bilirubin 0.6 mg/dL (0.2-1.3)
[2020-05-03 04:21] LABS: D-Dimer <0.17 mg/L FEU (<0.60); INR 1.1 (<1.2); Partial Thromboplastin Time 24.4 sec (22.0-30.0); Prothrombin Time 11.6 sec (9.0-12.0)
--- NOTE | 2020-05-03 04:31 | XR ---
EXAM: XR Chest, 2 Views CLINICAL HISTORY: ITS.REASON XR Reason: Chest Pain TECHNIQUE: Frontal and lateral views of the chest. COMPARISON: October 04, 2018 FINDINGS: Lungs: Unremarkable. No consolidation. Pleural space: Unremarkable. No pneumothorax. Heart: Unremarkable. No cardiomegaly. Mediastinum: Unremarkable. Bones/joints: Mild degenerative changes in the mid thoracic spine. IMPRESSION: No acute findings in the chest.
[2020-05-03 05:03] VITALS: BP 118/72; PULSE 70; RESP 17
== END 2020-05-03 05:04 | disposition home or self-care (01) ==
LOC: EC 03:22
DX: R07.2 Precordial pain (principal); Z88.5 Allergy status to narcotic agent; Z88.6 Allergy status to analgesic agent; Z91.048 Other nonmedicinal substance allergy status
CPT/HCPCS: 36415; 71046; 80053; 83735; 84484; 85025; 85379; 85610; 85730; 93005; 99285

== ENCOUNTER → 2020-11-03 | Outpatient (CLI) | payer OTHER ==
--- NOTE | 2020-11-03 18:17 | XR ---
EXAMINATION TYPE: XR lumbosacral spine min 4V DATE OF EXAM: 11/03/2020 CLINICAL HISTORY: Lower back pain. No known injury. TECHNIQUE: Frontal, lateral, and oblique images of the lumbar spine are obtained. COMPARISON: None FINDINGS: There are 5 lumbar type vertebral bodies identified. The lumbar spine shows satisfactory alignment without evidence of acute fracture or dislocation. No spondylolisthesis. Vertebral body hei ghts and disk space heights are within normal limits. The oblique images demonstrate facet arthropa thy of the bilateral inferior lumbar spine facet joints, right greater than left. The overlying soft tissue appears unremarkable. IMPRESSION: 1. No acute fracture or dislocation is seen in the lumbar spine. 2. Bilateral multilevel facet arthropathy, right greater than left.
--- NOTE | 2020-11-03 18:19 | XR ---
EXAMINATION TYPE: XR Hip Bilateral Complete DATE OF EXAM: 11/03/2020 CLINICAL HISTORY: Bilateral hip pain. No known injury. TECHNIQUE: AP and frogleg views of the bilateral hips are obtained. COMPARISON: None. FINDINGS: There is no acute fracture or dislocation of the bilateral hips. Femoral head contours ar e normal. The hip joint space appears within normal limits. There is minimal degenerative spurring a t the right superior acetabulum. Normal osseous mineralization. Likely a benign bone island of the le ft femur. The overlying soft tissue appears unremarkable. IMPRESSION: 1. No acute fracture or dislocation of the bilateral hips. 2. Minimal degenerative spurring at the right hip.
== END | disposition home or self-care (01) ==
LOC: LABWHC1 14:31
PROVIDERS: ATTEND Family Medicine
DX: M54.5 Low back pain (principal); M25.551 Pain in right hip; M25.552 Pain in left hip
CPT/HCPCS: 72110; 73521

== ENCOUNTER 2021-02-18 16:43 | Emergency (ER) | payer OTHER ==
--- NOTE | 2021-02-18 18:30 | US ---
EXAMINATION TYPE: US venous doppler duplex UE RT DATE OF EXAM: 02/18/2021 COMPARISON: NONE CLINICAL HISTORY: pain, swelling. . 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 IMPRESSION: 1. Grayscale, color doppler, spectral doppler imaging performed of the deep veins of the upper extrem ities. There is normal flow, compressibility and vascular waveforms. 2. No solid or cystic masses identified in the area of concern.
--- NOTE | 2021-02-18 19:37 | ED ---
Extremity Problem HPI - General Chief complaint: Extremity Problem,Nontraumatic Stated complaint: possible blood clot Time Seen by Provider: 02/18/21 19:06 Source: patient, RN notes reviewed Mode of arrival: ambulatory Limitations: no limitations - History of Present Illness Initial comments: Patient is a 40-year-old female that presents to the emergency department complaining of right upper arm swelling. She notes that she recently got a melanoma removed by a doctor at [facility]. She notes that today was expressing very minimal blood she called her doctor who told her to come to ER to check for any blood clots. Patient denied any pain in the area. She noted that she can continue cleaning covering as she's been instructed to. She denied any chest pain shortness of breath headache nausea vomiting diarrhea constipation fever fatigue chills. - Related Data Home Medications Medication Instructions Recorded Confirmed ALPRAZolam [Xanax] 1 mg PO DIRECTED PRN 08/17/19 08/19/19 Phentermine HCl [Adipex-P] 37.5 mg PO DAILY 08/17/19 08/17/19 Previous Rx's Medication Instructions Recorded Enoxaparin [Lovenox] 80 mg SQ HS 30 Days #30 syringe 08/20/19 HYDROcodone/APAP 7.5-325MG [[place] 1 each PO Q6H PRN #12 tab 08/20/19 7.5-325] Ibuprofen [Motrin] 800 mg PO Q8HR PRN #30 tab 08/20/19 Famotidine [Pepcid] 20 mg PO BID #14 tablet 05/03/20 Lidocaine Viscous [Xylocaine 5 ml PO Q3HR PRN #100 ml 05/03/20 Viscous 2%] Allergies Allergy/AdvReac Type Severity Reaction Status Date / Time adhesive tape Allergy BLISTERS" Verified 05/03/20 03:42 codeine AdvReac Severe Chest Pain Verified 05/03/20 03:42 meperidine HCl [From Demerol] AdvReac Chest Pain Verified 05/03/20 03:42 nitroglycerin AdvReac Unknown Verified 05/03/20 03:42 [From Nitrostat] Review of Systems ROS Statement: Those systems with pertinent positive or pertinent negative responses have been documented in the HPI. ROS Other: All systems not noted in ROS Statement are negative. Past Medical History Past Medical History: Supraventricular Tachycardia (SVT) Additional Past Medical History / Comment(s): Homozygous Factor V deficiency, endometriosis History of Any Multi-Drug Resistant Organisms: None Reported Past Surgical History: Hysterectomy Additional Past Surgical History / Comment(s): left ovary removed, cardiac ablation 3, right breast biopsy/benign, melanoma removed right upper arm. Past Anesthesia/Blood Transfusion Reactions: No Reported Reaction Additional Past Anesthesia/Blood Transfusion Reaction / Comment(s): Awoke up during surgery x1 as child Past Psychological History: No Psychological Hx Reported Smoking Status: Never smoker Past Alcohol Use History: None Reported Past Drug Use History: None Reported - Past Family History Brother(s) Family Medical History: Deep Vein Thrombosis (DVT) Additional Family Medical History / Comment(s): Patient has one brother with history of DVT. He has factor V positive. Sister(s) Additional Family Medical History / Comment(s): Patient has 1 sister with no major medical problems. Patient has 3 daughters and to have one gene positive for factor V and 1 daughter has 2 genes. Father Family Medical History: Cancer, Coronary Artery Disease (CAD), Diabetes Mellitus, Myocardial Infarction ([place]) Mother Family Medical History: Deep Vein Thrombosis (DVT), Myocardial Infarction ([place]), Pulmonary Embolus General Exam Limitations: no limitations General appearance: alert, in no apparent distress Head exam: Present: atraumatic, normocephalic, normal inspection Eye exam: Present: normal appearance, PERRL, EOMI. Absent: scleral icterus, conjunctival injection, periorbital swelling Neck exam: Present: normal inspection Respiratory exam: Present: normal lung sounds bilaterally. Absent: respiratory distress, wheezes, rales, rhonchi, stridor Cardiovascular Exam: Present: regular rate, normal rhythm, normal heart sounds. Absent: systolic murmur, diastolic murmur, rubs, gallop, clicks Extremities exam: Present: normal inspection, full ROM, normal capillary refill, other (Right upper arm surgical site no signs or symptoms of infection, wound appears to be progressing well.). Absent: tenderness, pedal edema, joint swelling, calf tenderness Course Vital Signs 02/18/21 17:18 Temperature 97.8 F Pulse Rate 72 Respiratory 16 Rate Blood Pressure 101/66 O2 Sat by Pulse 100 Oximetry Medical Decision Making - Medical Decision Making 40-year-old female right upper arm surgical site worried about possible blood clot. Ultrasound of the right upper extremity ordered. Ultrasound negative for any DVT. Incision has no signs or symptoms of infection. Case discussed with Dr. Up him a patient can discharge home. - Radiology Data Radiology results: report reviewed, image reviewed Ultrasound of the right upper extremity: Veronica scale color Doppler spectral Doppler imaging performed of the deep veins of the upper extremities. There is normal flow compressibility and vascular waveforms. No solid or cystic masses identified in the area of concern. Disposition Clinical Impression: Pain at surgical site, Right arm pain Disposition: HOME SELF-CARE Condition: Stable Instructions (If sedation given, give patient instructions): Arm Pain (ED) Additional Instructions: Please return to the Emergency Department if symptoms worsen or any other concerns. Continue to follow-up with primary care and her surgeon. Continue take care of surgical site keeping it clean and dry. Is patient prescribed a controlled substance at d/c from ED?: No Referrals: Domenico Rogers DO [Primary Care Provider] - 1-2 days Time of Disposition: 19:37
[2021-02-18 19:56] VITALS: BP 119/79; PULSE 85; RESP 18; TEMP 98.3
== END 2021-02-18 19:56 | disposition home or self-care (01) ==
LOC: EC 16:43
DX: M79.601 Pain in right arm (principal); G89.18 Other acute postprocedural pain; Z88.5 Allergy status to narcotic agent; Z90.710 Acquired absence of both cervix and uterus; Z90.721 Acquired absence of ovaries, unilateral
CPT/HCPCS: 99283

== ENCOUNTER → 2023-03-20 | Outpatient (CLI) | payer MEDICAID ==
--- NOTE | 2023-03-21 07:59 | CT ---
EXAMINATION TYPE: CT chest wo/w con DATE OF EXAM: 03/20/2023 COMPARISON: 10/04/2018 HISTORY: POT syndrome, Hx of nodule on lung, SOB upon excertion. CT DLP: 330.6 mGycm Automated exposure control for dose reduction was used. TECHNIQUE: CT scan of the chest is performed with IV Contrast, patient injected with 100 ml mL of Isovue 300. M IP Images are created on CT scanner and reviewed. 3D reconstructed images are created on an [employer] workstation and reviewed. FINDINGS: LUNGS: The lungs are grossly clear, there is no concerning consolidative pneumonia identified. Ther e is no pleural effusion or pneumothorax seen. The tracheobronchial tree is patent. Apical pleural s carring. There is a 2 mm micronodule image 36 right lower lobe. Groundglass 3 mm nodule right upper l obe axial 14. Groundglass 4.5 mm nodule right 28 MEDIASTINUM: There are no greater than 1 cm hilar or mediastinal lymph nodes. No pericardial effusi on is seen. OTHER: Postcholecystectomy. Small hiatal hernia. IMPRESSION: 1. There is no evidence of acute intrathoracic process. 2. There are subcentimeter solid and groundglass nodules in the right lung which have a benign appear ance and can be followed until
== END | disposition home or self-care (01) ==
LOC: RADCTMAIN 17:13
PROVIDERS: ATTEND Family Medicine
DX: G90.A Postural orthostatic tachycardia syndrome [POTS] (principal); R91.8 Other nonspecific abnormal finding of lung field; R42 Dizziness and giddiness; Z87.898 Personal history of other specified conditions; R06.02 Shortness of breath
CPT/HCPCS: 71270; Q9967

== ENCOUNTER → 2023-04-02 | Outpatient (CLI) | payer MEDICAID ==
--- NOTE | 2023-04-04 13:52 | MR ---
EXAMINATION TYPE: MR chest wo con DATE OF EXAM: 04/02/2023 10:57 PM CLINICAL INDICATION:Female, 42 years old with history of R91.8,R06.02,R93.89; PHH, New onset of SOB, Abnormal CT of chest, Lung nodules COMPARISON: CT 03/20/2023 TECHNIQUE: Multi planar, multi sequence imaging was obtained through the chest. IV Contrast: No gadolinium was given. FINDINGS: No soft tissue, muscular, or osseous abnormality is noted. The lung parenchyma, mediastinum, and paraspinal regions included on the exam are grossly within norm al limits given MRI technique. Lung nodules are not visualized on MRI. This is likely secondary due t o MRI technique. No evidence of mediastinal adenopathy. IMPRESSION No evidence of soft tissue mass no significant abnormality.
== END | disposition home or self-care (01) ==
LOC: RADMRIMAIN 21:40
PROVIDERS: ATTEND Family Medicine
DX: R91.8 Other nonspecific abnormal finding of lung field (principal); R06.02 Shortness of breath; R93.89 Abnormal findings on diagnostic imaging of other specified body structures
CPT/HCPCS: 71550

== ENCOUNTER → 2023-05-15 | Outpatient (CLI) | payer MEDICAID ==
--- NOTE | 2023-05-15 12:29 | CA ---
Exercise Stress Test Report Name: Cecy Barrera Exam Date: 05/15/2023 09:21 Exam Location: [place] Stress Ht (in): 64 Wt (lb): 141 BSA: 1.69 Ordering Phys: Myron Smith MD Referring Phys: MYRON SMITH,, Technologist: KOKI MAZARIEGOS Age: 42 Gender: F : 1980 Procedure CPT: Indications: R42 Dizziness ICD-10 Codes: Patient History: CP, ASHLY, PALP, NUMBNESS FACE/NECK, HIGH CHOL, FAMILY HX, Medications: triazadone,,,,,, adderall,,,,, Meds past 24 hrs: Pretest Chest Pain: STRESS TEST Dion Protocol Exercise Duration (min:sec): 09:[address] Depressions (mm): Angina Score: Smith Score: Resting HR (bpm): 80 Peak HR (bpm): 155 Resting BP (mmHg): 108 / 75 Peak BP (mmHg): 179 / 74 MPHR: 177 Target HR: 150 % MPHR: 88 METS: 10.3 Total Dose: Peak Dose: Atropine: Double Product: 38116 BP Response: Stress Termination: Reached target heart rate Stress Symptoms: CHEST TIGHTNESS THAT DISSIPATED WITH END OF EXERCISE. Stress Summary: The patient's target heart rate was achieved ECG ANALYSIS Resting ECG: Stress ECG: CONCLUSIONS Baseline EKG revealed a normal sinus rhythm without significant ST-T changes. Patient walked on a standard Dion protocol for a total duration of 9 minutes and achieved a maximum heart rate of 155 bpm. Resting heart rate was 80 bpm. Resting blood pressure was 108/75 and peak blood pressure was 179/74. Patient had nondescript chest pain very atypical that resolved at that completion of exercise. By EKG criteria this is a negative stress test without evidence of ischemia at a fairly decent exercise capacity of 9 minutes and heart rate of more than 85% of predicted maximal. Dr. Clinton Walls MD (Electronically Signed) Final Date: 15 May 2023 12:28
== END | disposition home or self-care (01) ==
LOC: RADNMMAIN 08:57
PROVIDERS: ATTEND Family Medicine
DX: I47.9 Paroxysmal tachycardia, unspecified (principal); G90.A Postural orthostatic tachycardia syndrome [POTS]; E78.00 Pure hypercholesterolemia, unspecified; R42 Dizziness and giddiness; R00.2 Palpitations; Z86.79 Personal history of other diseases of the circulatory system
CPT/HCPCS: 93017

== ENCOUNTER → 2023-05-19 | Outpatient (CLI) | payer MEDICAID ==
--- NOTE | 2023-05-19 22:01 | CT ---
EXAMINATION TYPE: CT abdomen pelvis w con CT DLP: 543.1 mGycm, Automated exposure control for dose reduction was used. DATE OF EXAM: 05/19/2023 7:02 PM COMPARISON: none CLINICAL INDICATION:Female, 42 years old with history of R11.0 nausea, R10.9 abd pain; Lower pelvic p ain and hematuria x 1 month. Patient stated that her doctor believes that she may have a prolapsed bl adder. TECHNIQUE: Axial CT of the ;CT abdomen pelvis w con;Sagittal and coronal reformats were created on a separate workstation. Contrast used:100 cc mL of Isovue 300 with IV Contrast, (none if empty) Oral contrast used: with Oral Contrast (none if empty) FINDINGS: LOWER CHEST: Unremarkable ABDOMEN LIVER: Unremarkable GALLBLADDER AND BILE DUCTS: The gallbladder surgically absent. PANCREAS: Unremarkable. SPLEEN: Unremarkable. ADRENAL GLANDS: Unremarkable. KIDNEYS AND URETERS: No evidence of hydronephrosis or renal calculus. The ureters are unremarkable. PELVIS BLADDER: The bladder is within normal position within the pelvis. REPRODUCTIVE: Unremarkable. ABDOMEN & PELVIS STOMACH AND BOWEL: No evidence of bowel obstruction. There is a redundant sigmoid colon which extends up into the left upper abdomen near the diaphragm. Colon extends through the mesentery series 8 imag e 33. Small waist there is present. On sagittal imaging series 9 image 79 and image 85 axial imaging series 4 image 36. PERITONEUM/RETROPERITONEUM: No evidence of pneumoperitoneum or free fluid. VASCULATURE: No evidence of aortic aneurysm. MUSCULOSKELETAL: No acute osseous abnormalities LYMPH NODES: No gross evidence for lymphadenopathy. SOFT TISSUE/ABDOMINAL WALL: Unremarkable IMPRESSION: 1. No evidence for obstructive uropathy or renal calculus. The appendix is normal. 2. No evidence for bladder prolapse. 3. There is suspected internal hernia with redundant sigmoid colon extending up through this herniati on in the mesentery with some narrowing of both portions of the colon as it enters and exits the neck of the hernia. There is a little large amount stool upstream from this in the colon.
== END | disposition home or self-care (01) ==
LOC: RADCTMAIN 17:06
PROVIDERS: ATTEND Family Medicine
DX: K56.41 Fecal impaction (principal); R11.0 Nausea; R31.9 Hematuria, unspecified
CPT/HCPCS: 74177; Q9967

== ENCOUNTER → 2023-10-01 | Outpatient (CLI) | payer BC ==
--- NOTE | 2023-10-01 16:08 | US ---
EXAMINATION TYPE: US venous doppler duplex LE LT DATE OF EXAM: 10/01/2023 2:31 PM COMPARISON: 2019 CLINICAL INDICATION: Female, 43 years old with history of R22.42 PAIN IN LEFT LEG M79.662 SWELLING L EFT LEG; Left leg swelling and palpable area left pop fossa SIDE PERFORMED: Left TECHNIQUE: The lower extremity deep venous system is examined utilizing real time linear array sonog yohan with graded compression, doppler sonography and color-flow sonography. VESSELS IMAGED: Common Femoral Vein Deep Femoral Vein Greater Saphenous Vein * Femoral Vein Popliteal Vein Small Saphenous Vein * Proximal Calf Veins (* superficial vessels) Left Leg: Negative for DVT; at area of palpable within popliteal fossa there is an area of distorted tissue noted. Patient denies any injury to the area. IMPRESSION: 1. Left lower extremity ultrasound negative for deep venous thrombosis. 2. The palpable abnormality popliteal region tissue definition is poorly defined. Consider follow-up with MRI.
== END | disposition home or self-care (01) ==
LOC: RADUSWWP 14:07
PROVIDERS: ATTEND Family Medicine
DX: R22.42 Localized swelling, mass and lump, left lower limb (principal); M79.662 Pain in left lower leg; M79.89 Other specified soft tissue disorders

== ENCOUNTER → 2023-11-28 | Outpatient (CLI) | payer BC ==
--- NOTE | 2023-11-29 13:37 | MR ---
EXAMINATION TYPE: MR knee LT wo con DATE OF EXAM: 11/28/2023 COMPARISON: None HISTORY: Left knee pain and swelling, abnormal US, patient states lump is on back of knee TECHNIQUE: Multiplanar, multisequence imaging of the left knee is performed without IV contrast. FINDINGS: Findings: There is a small joint effusion and tiny Márquez's cyst. Patellar cartilage is normal in thickness and signal intensity. The quadriceps and patellar tendons a re intact. There is partial tearing of the proximal aspect of the anterior cruciate ligament. The posterior cruc iate ligament is intact. There is no meniscal tear. The medial and lateral collateral ligaments are intact. There is no bone contusion or fracture. IMPRESSION: 1. Small joint effusion and tiny Márquez cyst. 2. Partial tear of the proximal aspect of the anterior cruciate ligament 3. No meniscal tear. 4. No bone contusion or fracture.
== END | disposition home or self-care (01) ==
LOC: RADMRIMAIN 16:36
PROVIDERS: ATTEND Family Medicine
DX: S83.8X2A Sprain of other specified parts of left knee, initial encounter (principal); M71.20 Synovial cyst of popliteal space [Baker], unspecified knee; M25.462 Effusion, left knee; M71.22 Synovial cyst of popliteal space [Baker], left knee

== ENCOUNTER → 2024-04-15 | Outpatient (CLI) | payer BC ==
--- NOTE | 2024-04-15 08:55 | MM ---
Reason for Exam: Clinical finding. Last mammogram was performed 1 year(s) and 3 month(s) ago. Patient History: Menarche at age 8. First Full-Term at age 17. Left ovary removed at age 21. Right ovary removed at age 39. Hysterectomy at age 39. Postmenopausal. Other cancer, age 21. 08/16/2019, Cyst Aspiration on the Left side. 08/16/2019, Cyst Aspiration on the Left side. 12/12/2014, Benign Cyst Aspiration on the left side. 12/12/2014, Benign Core Biopsy on the left side. Paternal aunt had breast cancer, age 40. Paternal aunt had breast cancer, age 40. Paternal aunt had breast cancer, age 40. Risk Values: Arcelia 5 year model risk: 1.0%. NCI Lifetime model risk: 9.4%. Tissue Density: The breasts are heterogeneously dense, which may obscure small masses. Findings: Analyzed By CAD. Left breast biopsy clip. No finding to correlate with patient's pain in the left axilla and no definitive abnormality in area of palpable abnormality. Overall Assessment: Incomplete: need additional imaging evaluation, BI-RAD 0 Management: Diagnostic Breast Ultrasound of the left breast. Results were given to the patient verbally at the time of exam. Patient should continue monthly self-breast exams. A clinical breast exam by your physician is recommended on an annual basis. This exam should not preclude additional follow-up of suspicious palpable abnormalities. Note on Arcelia scores and lifetime risk: 1. A Arcelia score greater than 3% is considered moderate risk. If this is the case, consider specialist referral to assess eligibility for a risk reducing agent. 2. If overall lifetime risk for the development of breast cancer is 20% or higher, the patient may qualify for future screening with alternating mammogram and breast MRI. [facility], , 04/15/2024 8:36 AM. Electronically signed and approved by: Ok Estrada DO
--- NOTE | 2024-04-15 09:07 | USB ---
Reason for Exam: Clinical finding. Patient History: Menarche at age 8. First Full-Term at age 17. Left ovary removed at age 21. Right ovary removed at age 39. Hysterectomy at age 39. Postmenopausal. Other cancer, age 21. 08/16/2019, Cyst Aspiration on the Left side. 08/16/2019, Cyst Aspiration on the Left side. 12/12/2014, Benign Cyst Aspiration on the left side. 12/12/2014, Benign Core Biopsy on the left side. Paternal aunt had breast cancer, age 40. Paternal aunt had breast cancer, age 40. Paternal aunt had breast cancer, age 40. Risk Values: Arcelia 5 year model risk: 1.0%. NCI Lifetime model risk: 9.4%. Technique: Method: Targeted. Prior Study Comparison: 12/12/2014 Left Diagnostic Mammogram, [facility]. 05/20/2019 Bilateral Diagnostic Mammogram, [facility]. 01/16/2023 Bilateral MG 3D screening mammo w/cad, [facility]. Findings: The area of palpable concern of the left breast, the axilla of the left breast and the retroareolar of the left breast were scanned. Technique utilized:US breast limited LT Image; Ultrasound imaging of: All 4 quadrants, the retroareolar region and axilla. Hypoechoic lesion just beneath the skin surface possible tail possibly representing sebaceous cyst. Short-term follow-up in 3 months to ensure resolution. 9 O'clock 4 centers nipple measuring 11 x 4 x 12 mm Technique utilized:US breast limited LT Image; Ultrasound imaging of: Area of concern, retroareolar region and axilla. Hypoechoic lesion just beneath the skin surface possible tail possibly representing sebaceous cyst. Short-term follow-up in 3 months to ensure resolution. 9 O'clock 4 cm from the nipple measuring 11 x 4 x 12 mm. Overall Assessment: Probably benign, BI-RAD 3 Management: Diagnostic Breast Ultrasound of the left breast in 3 months. A clinical breast exam by your physician is recommended on an annual basis and results should be correlated with mammographic findings. This exam should not preclude additional follow-up of suspicious palpable abnormalities. Results were given to the patient verbally at the time of exam. [facility], , 04/15/2024 9:05 AM. Electronically signed and approved by: Ok Estrada DO
== END | disposition home or self-care (01) ==
LOC: RADMAMWWP 08:06
PROVIDERS: ATTEND Family Medicine
CPT/HCPCS: 77062; 77066